=== PATIENT | female | born 1965 | race Caucasian/White ===

== ENCOUNTER → 2016-12-01 | Outpatient (CLI) | payer MEDICAID, BC ==
[2016-12-01 08:40] LABS: ALT 45 U/L (9-52); AST 44 U/L (14-36); Alkaline Phosphatase 78 U/L (38-126); Anion Gap 12 mmol/L; Blood Urea Nitrogen 20 mg/dL (7-17); Calcium 8.9 mg/dL (8.4-10.2); Carbon Dioxide 25 mmol/L (22-30); Chloride 104 mmol/L (98-107); Cholesterol 181 mg/dL (<200); Glucose 108 mg/dL (74-99); HDL Cholesterol 54 mg/dL (40-60); Non-African American GFR(MDRD) >60 (>60 ml/min/1.73 sqM); Potassium 3.5 mmol/L (3.5-5.1); Sodium 141 mmol/L (137-145); Total Bilirubin 0.5 mg/dL (0.2-1.3); Total Protein 6.8 g/dL (6.3-8.2); Triglycerides 193 mg/dL (<150)
[2016-12-01 08:46] LABS: Basophils # (A) 0.1 k/uL (0-0.2); Basophils % (A) 1 %; CH 31.2; CHCM 34.4; Eosinophils # (A) 0.2 k/uL (0-0.7); Eosinophils % (A) 3 %; HCT 39.2 % (34.0-46.0); HGB 13.6 gm/dL (11.4-16.0); Luc # (Auto) 0.27; Luc % (Auto) 3; Lymphocytes # (A) 3.2 k/uL (1.0-4.8); Lymphocytes % (A) 40 %; MCH 31.6 pg (25.0-35.0); MCHC 34.6 g/dL (31.0-37.0); MCV 91.4 fL (80.0-100.0); Mean Platelet Volume 6.9; Monocytes # (A) 0.6 k/uL (0-1.0); Monocytes % (A) 7 %; Neutrophils # (A) 3.6 k/uL (1.3-7.7); Neutrophils % (A) 46 %; RBC 4.29 m/uL (3.80-5.40); RDW 12.7 % (11.5-15.5); WBC (Perox) 8.06
== END | disposition home or self-care (01) ==
LOC: LABWHC1 07:03
PROVIDERS: ATTEND Nurse Practitioner
DX: E78.5 Hyperlipidemia, unspecified (principal); I10 Essential (primary) hypertension; G89.29 Other chronic pain; F31.32 Bipolar disorder, current episode depressed, moderate
CPT/HCPCS: 36415; 80053; 80061; 80183; 84439; 84443; 85025

== ENCOUNTER → 2017-10-10 | Outpatient (CLI) | payer MEDICAID, BC | END | disposition home or self-care (01) | LOC: LABWHC1 07:17 | PROVIDERS: ATTEND Nurse Practitioner | DX: F31.32 Bipolar disorder, current episode depressed, moderate (principal) | CPT/HCPCS: 36415; 80183 ==

== ENCOUNTER → 2018-02-15 | Outpatient (CLI) | payer MEDICAID, BC ==
--- NOTE | 2018-02-15 15:03 | BD ---
EXAMINATION TYPE: Axial Bone Density DATE OF EXAM: 02/15/2018 COMPARISON: NONE CLINICAL HISTORY: Z 13.820, post menopausal female Height: 62 Weight: 248.5 FRAX RISK QUESTIONS: Alcohol (3 or more units per day): no Family History (Parent hip fracture): no Glucocorticoids (More than 3mos): no (Ex: prednisone, prednisolone, methylprednisolone, dexamethasone, and hydrocortisone). History of Fracture in Adulthood: yes Secondary Osteoporosis: 1. Type 1 Diabetes: no 2. Hyperthyroidism: no 3. Menopause before 45: 4. Malnutrition: no 5. Chronic liver disease: no Rheumatoid Arthritis: no Current Tobacco Use: no RISK FACTORS HISTORY OF: Spine Fracture: c-spine When: 1998 Surgery to Spine/Hip(right/left)/Wrist (right/left): lumbar spine When: 2002 Family History of Osteoporosis: no Active: no Diet low in dairy products/other sources of calcium: yes Postmenopausal woman: hysterectomy 2004 Take estrogen and/or progesterone medications: yes How long: since 2004 Lost more than 2 inches in height since high school: no MEDICATIONS: blood pressure, cholesterol meds, protonix, cymbalta, premarin Thyroid Medications: levothyroxine How Lon months Additional History: EXAM MEASUREMENTS: Bone mineral densitometry was performed using the [employer] System. Bone mineral density about the R hip (g/cm2): 0.967 Bone mineral density about the L hip (g/cm2): 1.019 T Score values are as follows: -----R Neck: -0.5 -----L Neck: -0.1 -----R Total: 1.3 -----L Total: 1.7 Bone mineral density : baseline Bone mineral density about the L Wrist (g/cm2): 0.735 T Score values are as follows: -----Dist. R+U: 1.4 -----Prox. R+U: 0.8 -----Radius total: 1.0 Bone mineral density : baseline IMPRESSION: Normal bone density NOTE: T-SCORE=SD OF THE YOUNG ADULT MEAN.
--- NOTE | 2018-02-18 11:06 | MM ---
Reason for exam: screening (asymptomatic). Last mammogram was performed 1 year and 10 months ago. History: Patient is postmenopausal. Taking estrogen for 5 years beginning at age 47. Physical Findings: A clinical breast exam by your physician is recommended on an annual basis and results should be correlated with mammographic findings. MG 3D Screening Mammo W/Cad Bilateral CC and MLO view(s) were taken. Prior study comparison: April 20, 2016, bilateral MG 3d screening mammo w/cad. August 28, 2013, mammogram, performed at [facility]. There are scattered fibroglandular densities. No suspicious abnormality. No significant changes when compared with prior studies. ASSESSMENT: Negative, BI-RAD 1 RECOMMENDATION: Routine screening mammogram of both breasts in 1 year.
== END | disposition home or self-care (01) ==
LOC: RADMAMWWP 12:01
PROVIDERS: ATTEND Obstetrics & Gynecology
DX: Z12.31 Encounter for screening mammogram for malignant neoplasm of breast (principal); Z13.820 Encounter for screening for osteoporosis
CPT/HCPCS: 77063; 77067; 77080

== ENCOUNTER → 2018-04-17 | Outpatient (CLI) | payer MEDICAID, BC ==
--- NOTE | 2018-04-24 12:08 | ECHOF ---
Referral Reason:R94.31 Abnormal EKG MEASUREMENTS -------- HEIGHT: 157.5 cm WEIGHT: 111.1 kg BP: RVIDd: 3.6 cm (< 3.3) IVSd: 1.6 cm (0.6 - 1.1) LVIDd: 4.2 cm (3.9 - 5.3) LVPWd: 1.5 cm (0.6 - 1.1) IVSs: 1.9 cm LVIDs: 2.8 cm LVPWs: 1.9 cm LAESV Index (A-L): 22.95 ml/m Ao Diam: 3.0 cm (2.0 - 3.7) AV Cusp: 1.8 cm (1.5 - 2.6) LA Diam: 3.4 cm (2.7 - 3.8) MV E Walker: 0.91 m/s MV DecT: 240 ms MV A Walker: 1.00 m/s MV E/A Ratio: 0.91 RAP: 5.00 mmHg RVSP: 34.31 mmHg FINDINGS -------- Sinus rhythm. This was a technically adequate study. The left ventricular size is normal. There is moderate concentric left ventricular hypertrophy. O verall left ventricular systolic function is normal with, an EF between 55 - 60 %. The right ventricle is mildly enlarged. Normal LA size by volume 22+/-6 ml/m2. The right atrium is normal in size. Aortic valve is trileaflet and is mildly thickened. Trace amount of aortic regurgitation. There is no evidence of aortic stenosis. The mitral valve leaflets are mildly thickened. There is trace to mild mitral regurgitation. Trace tricuspid regurgitation present. There is borderline pulmonary hypertension. The right vent ricular systolic pressure, as measured by Doppler, is 34.31mmHg. Trace/mild (physiologic) pulmonic regurgitation. The aortic root size is normal. Normal inferior vena cava with normal inspiratory collapse consistent with estimated right atrial pre ssure of 5 mmHg. There is no pericardial effusion. CONCLUSIONS -------- 1. Sinus rhythm. 2. This was a technically adequate study. 3. The left ventricular size is normal. 4. There is moderate concentric left ventricular hypertrophy. 5. Overall left ventricular systolic function is normal with, an EF between 55 - 60 %. 6. The right ventricle is mildly enlarged. 7. Normal LA size by volume 22+/-6 ml/m2. 8. Aortic valve is trileaflet and is mildly thickened. 9. Trace amount of aortic regurgitation. 10. The mitral valve leaflets are mildly thickened. 11. There is trace to mild mitral regurgitation. 12. Trace tricuspid regurgitation present. 13. There is borderline pulmonary hypertension. 14. The right ventricular systolic pressure, as measured by Doppler, is 34.31mmHg. 15. Trace/mild (physiologic) pulmonic regurgitation. 16. The aortic root size is normal. 17. There is no pericardial effusion. GIVER: Silas Gray RDCS
== END | disposition home or self-care (01) ==
LOC: RADECHMAIN 15:40
PROVIDERS: ATTEND Family Medicine
DX: I08.0 Rheumatic disorders of both mitral and aortic valves (principal); I27.20 Pulmonary hypertension, unspecified
CPT/HCPCS: 93306

== ENCOUNTER 2018-04-22 11:45 | Day surgery (SDC) | payer MEDICAID, BC ==
[2018-04-16 11:56] VITALS: BMI 44.8
[~2018-04-22 11:45] MED LIST: DEXAMETHASONE SOD PHOSPHATE 10 MG/ML 1 ML VIAL IV ONE; HYDROmorphone 0.5 MG/0.5 ML SYRINGE IVP PRN; LACTATED RINGERS 1,000 ML IV SCH; LIDOCAINE 1% 20 ML VIAL (10MG/ML) FOR IV START INTRADERMA PRN; MIDAZOLAM 2 MG/2 ML VIAL IV PRN; ONDANSETRON 4 MG/2 ML VIAL IVP ONE; Pre Op ABX Message 1 EACH MISC MISCELLANE ONE; SCOPOLAMINE 1.5MG/72HR PATCH TRANSDERM ONE
[2018-04-22 12:43] VITALS: TEMP 96.4
[2018-04-22] MEDS ORDERED: LIDOCAINE 1% INJ 10MG/ML (20 ML MDV) ONE (12:57)
[2018-04-22] MEDS ORDERED: PROPOFOL 10 MG/ML 20 ML VIAL IV ONE (12:57)
[2018-04-22] MEDS ORDERED: MIDAZOLAM 2 MG/2 ML VIAL ONE (12:57)
[2018-04-22] MEDS ORDERED: fentaNYL (PF) 50 MCG/ML 2 ML AMP ONE (12:57)
[2018-04-22] MEDS ORDERED: LIDOCAINE 2% INJ 20 MG/ML SQ ONE (13:01)
[2018-04-22] MEDS ORDERED: ROPIVACAINE 5 MG/ML 30 ML VIAL MISCELLANE ONE (13:01)
[2018-04-22 13:42] VITALS: BP 121/78; PULSE 78; RESP 16
--- NOTE | 2018-04-22 22:11 | OP ---
OPERATIVE REPORT PREOPERATIVE DIAGNOSIS: Finger POSTOP DIAGNOSIS: Finger . PROCEDURE PERFORMED: Excision of mass left middle finger. GROSS PATHOLOGY: 1 cm mass on the dorsal aspect of the mid lateral line of the radial aspect of the left middle finger. It was consistent with a ganglion cyst, although there was some overlying skin changes which were a little suspicious for wart formation. The mass and the skin lesion were sent together. PROCEDURE: This 53-year-old woman was taken operative suite, given IV sedation and her left middle finger was anesthetized with a digital block with combination of Xylocaine and Marcaine both without epinephrine. The hand was prepped and draped in usual manner. The finger was exsanguinated with a Stanton drain was used as a proximal tourniquet. Elliptical incision was made around the mass. The mass was sent with overlying abnormal skin to the lab for analysis. It was approximately 1 cm in diameter. The mass was primarily dorsal to the mid lateral line and the digital nerve appeared to have remained out of harm's way. The tourniquet was released. Hemostasis was satisfactory. The skin was closed with 5- 0 nylon suture. Soft bulky dressing was applied. Patient taken to the recovery room in satisfactory condition. MMODL / IJN: [id number] /
== END 2018-04-22 13:55 | disposition home or self-care (01) ==
LOC: OR 11:45
PROVIDERS: ATTEND Orthopaedic Surgery Hand Surgery
DX: D23.62 Other benign neoplasm of skin of left upper limb, including shoulder (principal); I10 Essential (primary) hypertension; Z87.891 Personal history of nicotine dependence; E78.5 Hyperlipidemia, unspecified; J45.909 Unspecified asthma, uncomplicated; G47.33 Obstructive sleep apnea (adult) (pediatric); Z99.89 Dependence on other enabling machines and devices; E07.9 Disorder of thyroid, unspecified; M19.90 Unspecified osteoarthritis, unspecified site; K21.9 Gastro-esophageal reflux disease without esophagitis; Z79.890 Hormone replacement therapy; Z79.891 Long term (current) use of opiate analgesic; Z79.51 Long term (current) use of inhaled steroids; Z79.899 Other long term (current) drug therapy
CPT/HCPCS: 88305; 84132; 11421; J2001 ×2; J2250; J1100; J2405; J3010; J2795; J2704

== ENCOUNTER → 2018-12-11 | Day surgery (SDC) | payer MEDICAID, BC ==
[2018-12-06 16:19] VITALS: BMI 44.8
[~2018-12-11] MED LIST changes: +ACETAMINOPHEN TAB 325 MG TAB ONE; +ACETAMINOPHEN TAB 325 MG TAB PO PRN; +ALPRAZolam 0.25 MG TAB PO PRN; +ALPRAZolam 0.5 MG TAB PO PRN; +ASPIRIN 325 MG TAB PO ONE; +ATORVASTATIN 80 MG TAB PO ONE; -DEXAMETHASONE SOD PHOSPHATE 10 MG/ML 1 ML VIAL IV ONE; +HEPARIN SODIUM 1,000 UN/ML (10ML VL) IV ONE; -HYDROmorphone 0.5 MG/0.5 ML SYRINGE IVP PRN; +IOPAMIDOL-370 125ML BTL INJ ONE; -LACTATED RINGERS 1,000 ML IV SCH; -LIDOCAINE 1% 20 ML VIAL (10MG/ML) FOR IV START INTRADERMA PRN; +LIDOCAINE 1% INJ 10MG/ML (20 ML MDV) SQ ONE; +MIDAZOLAM (PF) 2 MG/2 ML VIAL IVP ONE; -MIDAZOLAM 2 MG/2 ML VIAL IV PRN; +NITROGLYCERIN SL TABS 0.4 MG TAB SUBLINGUAL PRN; -ONDANSETRON 4 MG/2 ML VIAL IVP ONE; -Pre Op ABX Message 1 EACH MISC MISCELLANE ONE; +RX INFO: IV CONTRAST WAS GIVEN 1 EACH MISC MISCELLANE PRN; -SCOPOLAMINE 1.5MG/72HR PATCH TRANSDERM ONE; +SODIUM CHLORIDE 0.9% 1,000 ML IV SCH; +SODIUM CHLORIDE 0.9% 1,000 ML in EMPTY BAG 1 BAG IV ONE; +VERAPAMIL SYRINGE (5 MG/10 ML) INTRAARTER ONE; +fentaNYL (PF) 50 MCG/ML 2 ML AMP IVP ONE
[2018-12-11 10:05] VITALS: RESP 18; TEMP 97.8
--- NOTE | 2018-12-11 16:45 | LTR ---
DATE OF SERVICE: December 11, [address] Kirkland: Mr. Himanshu Britton underwent today a heart catheterization and that revealed normal coronaries. I want to thank you for allowing us to participate in his care and please do not hesitate to call if you have any questions or concerns. Sincerely, CHAITANYA / CHIN: [id number] /
--- NOTE | 2018-12-11 16:45 | CC ---
CARDIAC CATHETERIZATION REPORT DATE OF SERVICE: 12/11/2018 PERFORMING PHYSICIAN: Raoul Peralta MD, doll repairer. PROCEDURES PERFORMED: 1. Selective right and left coronary angiogram. 2. Left heart catheterization. INDICATION: This is a pleasant 53-year-old female patient with a past medical history significant for obesity, hypertension and dyslipidemia who was experiencing symptoms of chest discomfort. She underwent a stress test that was abnormal. Because of that, heart catheterization was advised. APPROACH: Right radial artery. COMPLICATIONS: None. LEVEL OF SEDATION: Moderate, with sedation length of 18 minutes. PROCEDURE DESCRIPTION: After obtaining informed consent, the patient was brought to the cardiac confectionery laboratory manager. The right radial artery was cannulated using micropuncture technique, and the micropuncture wire passed easily. Then I placed a 6-Tamazight sheath in the right radial artery. I gave the patient 2 mg of verapamil IA and 10,000 units of heparin IV. After that I did selective right and left coronary angiogram using JR4 and JL3.5 catheters. Left heart catheterization was performed using the JR4 catheter. The procedure was completed without any complication. SELECTIVE CORONARY ANGIOGRAM: 1. The RCA is a large-caliber vessel and it is a dominant vessel. It appeared to be angiographically normal. Distally it bifurcates into PDA and PLV branches; both are angiographically normal. 2. The left main is angiographically normal. It bifurcates into circumflex and left anterior descending artery. 3. The left circumflex is a large-caliber vessel. It is a nondominant vessel. The proximal circumflex appeared to be angiographically normal. The mid circumflex is normal as well and gives rise to first and second OM branches. Both appeared to be angiographically normal. The circumflex distally is normal as well. 4. The LAD. The proximal LAD appeared to be normal. It gives rise to a first diagonal branch which seems to be normal. The mid LAD is normal as well and gives rise to a second diagonal branch which seems to be normal and the LAD distally appeared to be normal. HEMODYNAMICS: The left ventricular end-diastolic pressure was about 8 mmHg without significant gradient across the aortic valve. CONCLUSION: 1. Normal coronary angiogram. 2. Normal left ventricular end-diastolic pressure. POST-PROCEDURE MANAGEMENT: 1. Medical treatment. 2. Follow up with the patient. MMODL / IJN: [id number] /
[2018-12-11 17:20] VITALS: BP 108/58; PULSE 70
== END ==
LOC: CATHCVL 09:33
PROVIDERS: ATTEND Internal Medicine Interventional Cardiology
DX: I20.0 Unstable angina (principal); R94.39 Abnormal result of other cardiovascular function study; R06.02 Shortness of breath; R00.2 Palpitations; I10 Essential (primary) hypertension; E78.00 Pure hypercholesterolemia, unspecified; E78.5 Hyperlipidemia, unspecified; Z87.891 Personal history of nicotine dependence; Z82.49 Family history of ischemic heart disease and other diseases of the circulatory system; G47.33 Obstructive sleep apnea (adult) (pediatric); E66.9 Obesity, unspecified; Z68.42 Body mass index [BMI] 45.0-49.9, adult; Z79.890 Hormone replacement therapy; Z79.899 Other long term (current) drug therapy; Z79.51 Long term (current) use of inhaled steroids
CPT/HCPCS: 93458; C1894; J2001; J3010; J1644; Q9967; J2250

== ENCOUNTER → 2019-06-05 | Outpatient (CLI) | payer MEDICAID, BC ==
--- NOTE | 2019-06-05 18:44 | CONS ---
CONSULTATION DATE OF SERVICE: 06/05/2019 This patient is a 54-year-old lady who has been evaluated in [facility] for obstructive sleep apnea-hypopnea syndrome. HISTORY OF PRESENT ILLNESS/SLEEP-WAKE EVALUATION: Patient was diagnosed with obstructive sleep apnea about 25 years ago in another institution, was started on treatment with CPAP, used it for many years, but for the last several years it was not very effective. She continues to wake up from sleep. She stopped using the equipment about one year ago. At present her sleep schedule on working days is from 11 p.m. until 7 a.m. and on weekends she may sleep from 11 p.m. until noon of the next day. No problems with falling asleep. No TV in bedroom. She sleeps on the side and back positions, wakes up from sleep with nocturia. In the morning the patient wakes up tired, falling asleep during the day. [place] Sleepiness Scale is in very high range at 22. Positive history of irritability, depression and anxiety. Positive history of kicking at night. Several episodes of out- of-dream behavior when patient punches her . No history of hypnagogic hallucinations, sleep paralysis or cataplexy. PAST MEDICAL HISTORY: Past medical history is positive for: 1. Episodes of atrial fibrillation in December of 2018. 2. Hypertension. 3. Acid reflux. 4. Hyperlipidemia. 5. Hypothyroidism. PAST SURGICAL HISTORY: 1. Total hysterectomy 7 years ago. 2. Spinal fusion surgery, C5-L1. 3. . MEDICATIONS: 1. Lovaza. 2. Lisinopril. 3. Furosemide. 4. Trileptal. 5. Cymbalta. 6. Protonix. 7. Crestor. 8. [place]. 9. Levothyroxine. 10.Premarin. SOCIAL HISTORY: Positive for smoking for about 15 years about half pack a day; quit about 5 years ago. Alcohol consumption practically none at the present time. FAMILY HISTORY: Hypertension, heart problems, hyperlipidemia, epilepsy, stroke, asthma, sinus headaches, snoring, thyroid problems. REVIEW OF SYSTEMS: Awakenings from sleep. Significant sleepiness during the day. Swelling of the legs. PHYSICAL EXAMINATION: lady without distress. VITAL SIGNS: BP 151/88, HR 79, RR 16, height 5 feet 1 inches, 214 IV 5 8 weight 251.2, body mass index 47.1, temperature 98.1, oxygen saturation at room air 96%. HEENT: PERRLA, EOMI. Evaluation of oropharynx showed tongue protrudes midline. Extremely low position of soft palate. Mallampati IV. NECK: Supple. No JVD. Thyroid is not palpable. Wide neck; 18-3/4 inches in circumference. LUNGS: Clear to percussion and to auscultation. Good air exchange. No wheezing or rhonchi. HEART: S1, S2 regular. No murmurs, gallops or rubs. ABDOMEN: Obese. EXTREMITIES: No clubbing or cyanosis. FRAME BENDER: Awake, alert, and oriented X3. Cranial nerves 2 to 7 intact. There is no fasciculation or atrophy. noted. No focal deficits observed. IMPRESSION: 1. History of obstructive sleep apnea diagnosed in another institution 25 years ago. Snoring, awakenings from sleep with nocturia, significant excessive daytime sleepiness, Montezuma Sleepiness Scale 22, extremely low position of soft palate, wide neck, 18-3/4 inches in circumference; obstructive sleep apnea-hypopnea syndrome. 2. Obesity with body mass index of 42.1. 3. Hypertension. 4. History of atrial fibrillation in december of 2018. 5. Acid reflux. 6. Hyperlipidemia. 7. Hypothyroidism. 8. Status post spinal fusion, C5-L1. 9. Status post total hysterectomy 7 years ago. 10.Status post section. 11.History of kicking; possible periodic limb movement syndrome. 12.Episodes of [id number] behavior; possibly REM-sleep behavioral disorder. 13.Significant excessive daytime sleepiness with Montezuma Sleepiness Scale of 22 and possible jeb-ij-bjlio movements, dictating necessity to include hypersomnia narcolepsy in differential diagnosis. PLAN: 1. Polysomnography for evaluation of patient's breathing during sleep. 2. CPAP/BiPAP titration if sleep study confirms obstructive sleep apnea-hypopnea syndrome. 3. Preferable position during sleep on the side. 4. No driving if patient feels any sleepiness. 5. I will see patient for follow up visit to explain results of testing and following plan. Thank you very much for referring this patient for consultation. Sincerely, Danielito Flores MD, PhD, FAASM Diplomat of [employer] Spanish Professor of [facility] [place] MMODL / IJN: [id number] /
== END | disposition home or self-care (01) ==
LOC: SLEEP 13:47
PROVIDERS: ATTEND Internal Medicine
DX: G47.33 Obstructive sleep apnea (adult) (pediatric) (principal); E66.9 Obesity, unspecified; Z68.41 Body mass index [BMI] 40.0-44.9, adult; I10 Essential (primary) hypertension; K21.9 Gastro-esophageal reflux disease without esophagitis; E78.5 Hyperlipidemia, unspecified; E03.9 Hypothyroidism, unspecified; R35.1 Nocturia; Z87.891 Personal history of nicotine dependence; Z86.79 Personal history of other diseases of the circulatory system; Z90.710 Acquired absence of both cervix and uterus; Z86.59 Personal history of other mental and behavioral disorders; Z98.1 Arthrodesis status; Z98.890 Other specified postprocedural states; Z79.891 Long term (current) use of opiate analgesic; Z79.899 Other long term (current) drug therapy
CPT/HCPCS: 99211

== ENCOUNTER → 2019-06-11 | Outpatient (CLI) | payer MEDICAID, BC ==
[2019-06-11 16:37] LABS: HGB 13.4 gm/dL (11.4-16.0); MCHC 33.4 g/dL (31.0-37.0); Platelet Count 424 k/uL (150-450); RBC 4.45 m/uL (3.80-5.40); RDW 12.1 % (11.5-15.5); WBC 10.2 k/uL (3.8-10.6)
[2019-06-11 21:19] LABS: African American GFR (CKD) 118.9 (60.0-200.0); Anion Gap 14.3 mmol/L (4.00-12.00); BUN/Creat Ratio 31.67 Ratio (12.00-20.00); Calcium 9.6 mg/dL (8.7-10.3); Carbon Dioxide 24.7 mmol/L (21.6-31.8); Magnesium 1.8 mg/dL (1.5-2.4); Potassium 3.7 mmol/L (3.5-5.5)
== END ==
LOC: LABWHC1 11:46
PROVIDERS: ATTEND Nurse Practitioner Adult Health
DX: I12.9 Hypertensive chronic kidney disease with stage 1 through stage 4 chronic kidney disease, or unspecified chronic kidney disease (principal); N18.9 Chronic kidney disease, unspecified
CPT/HCPCS: 36415; 80048; 83735; 85027

== ENCOUNTER → 2019-06-11 | Outpatient (CLI) | payer MEDICAID, BC ==
--- NOTE | 2019-06-13 11:15 | MM ---
Reason for exam: screening (asymptomatic). Last mammogram was performed 1 year and 4 months ago. History: Patient is postmenopausal. Taking estrogen for 5 years beginning at age 47. Physical Findings: A clinical breast exam by your physician is recommended on an annual basis and results should be correlated with mammographic findings. MG 3D Screening Mammo W/Cad Bilateral CC and MLO view(s) were taken. Prior study comparison: February 15, 2018, bilateral MG 3d screening mammo w/cad. April 20, 2016, bilateral MG 3d screening mammo w/cad. There are scattered fibroglandular densities. There is no discrete abnormality. No significant changes when compared with prior studies. ASSESSMENT: Negative, BI-RAD 1 RECOMMENDATION: Routine screening mammogram of both breasts in 1 year.
== END | disposition home or self-care (01) ==
LOC: RADMAMWWP 10:56
PROVIDERS: ATTEND Obstetrics & Gynecology
DX: Z12.31 Encounter for screening mammogram for malignant neoplasm of breast (principal); I10 Essential (primary) hypertension
CPT/HCPCS: 77063; 77067

== ENCOUNTER → 2019-09-25 | Outpatient (CLI) | payer MEDICAID, BC ==
--- NOTE | 2019-09-25 15:06 | PN ---
PROGRESS NOTE DATE OF SERVICE: 09/25/2019 A 54-year-old lady who has been followed in the Sleep Center for treatment of obstructive sleep apnea-hypopnea syndrome. Recently patient had a polysomnogram which showed moderate obstructive sleep apnea. Then patient had CPAP titration and subsequently received CPAP unit. Today is her first visit why she was started on treatment with CPAP. I discussed results of sleep studies with patient in detail. She is able to use her CPAP equipment every night, feel better with that, sleep better and feel better during the day, sometimes has problems related to adjustments of humidifier. She sleep some days quite long, amount of hours up to 14 hours several days according to patient and today [place] Sleepiness Scale is 15 with is still above normal range. I checked the patient CPAP unit, range of the pressure 5-14, average pressure is 13.8. Usage is 30/30 nights for more than 4 hours with average usage 8.5 hours per night. Leak is 8 L/minute, which is normal. Apnea-hypopnea index only 1.5, which is perfect. MEDICATIONS: Lovaza, lisinopril, furosemide, Trileptal, Cymbalta, Protonix, Crestor, [place], levothyroxine, Premarin. PHYSICAL EXAM: Patient in no distress, BP 164/83, HR 85, RR 16, weight 258.2, temperature 97.8, oxygen saturation at room air 94%. OROPHARYNX: Extremely low position of soft palate, Mallampati 4. ABDOMEN: Obese. NECK: Supple, no JVD. Thyroid is not palpable. LUNGS: Clear to percussion and to auscultation. Good air exchange. No wheezing or rhonchi. HEART: S1, S2 regular. No murmurs, gallops, or rubs. EXTREMITIES: No clubbing or cyanosis. PRODUCTION PATTERN MAKER: Awake, alert, and oriented X3. Cranial nerves 2 to 7 intact. There is no fasciculation or atrophy. noted. No focal deficits observed. IMPRESSION: 1. Moderate obstructive sleep apnea-hypopnea syndrome with extremely severe oxygen desaturation in REM sleep, respiration on full control with CPAP. Patient demonstrated great compliance with treatment benefitting from treatment. 2. Patient continued to have daytime sleepiness. Spe[place]fish Sleepiness Scale today is 15. Some nights asleep very long hours. Differential diagnosis would include additional diagnosis of idiopathic hypersomnia or narcolepsy. 3. Obesity. 4. Hypertension. 5. History of atrial fibrillation. 6. Hyperlipidemia. 7. Acid reflux. 8. Hypothyroidism. 9. Status post spinal fusion C5-L1. 10.Status post total hysterectomy. 11.Status post . 12.History of episodes of out of dream movements, possibly REM sleep behavioral disorder, not recently. PLAN: 1. Patient will continue to use CPAP equipment every night for the whole night. 2. Position of the CPAP unit should be lower than position of the head. 3. I will teach patient how to adjust humidity in the machine and temperature in the tube. 4. Losing weight. 5. Precautions related to driving. No driving if feeling sleepiness. 6. Multiple sleep latency test for objective evaluation of patient's symptoms of excessive daytime sleepiness. The test should be done after the night on the effective CPAP therapy. Thank you very much for allowing me to participate in the management of your patient. Sincerely, Danielito Flores MD, PhD, FAASM Diplomat of [employer] Milk Bottling Machine Operator of [facility] [place] MMODL / IJN: [id number] /
== END ==
LOC: SLEEP 13:29
PROVIDERS: ATTEND Internal Medicine
DX: G47.33 Obstructive sleep apnea (adult) (pediatric) (principal); E66.9 Obesity, unspecified; I10 Essential (primary) hypertension; E78.5 Hyperlipidemia, unspecified; K21.9 Gastro-esophageal reflux disease without esophagitis; E03.9 Hypothyroidism, unspecified; Z86.79 Personal history of other diseases of the circulatory system; Z98.1 Arthrodesis status; Z98.890 Other specified postprocedural states; Z90.710 Acquired absence of both cervix and uterus; Z79.891 Long term (current) use of opiate analgesic; Z79.899 Other long term (current) drug therapy

== ENCOUNTER → 2020-12-28 | Outpatient (CLI) | payer BC ==
--- NOTE | 2020-12-28 12:12 | MR ---
EXAMINATION TYPE: MR knee LT wo con DATE OF EXAM: 12/28/2020 COMPARISON: Outside left knee x-ray December 07, 2020 HISTORY: Left knee pain and swelling for 3 months. TECHNIQUE: Multiplanar, multisequence imaging of the left knee is performed without IV contrast. FINDINGS: MEDIAL MENISCUS: Posterior shoulder triangular increased signal with some fraying along the posterior margin. Anterior horn is intact. LATERAL MENISCUS: Anterior horn is truncated with abnormal signal extending to articular surface and towards the central body.Adjacent parameniscal cyst formation coronal image 15. CRUCIATE LIGAMENTS: The posterior cruciate ligament is intact and unremarkable. Anterior cruciate lig ament shows increased signal and fanning of fibers. COLLATERAL LIGAMENTS: The medial collateral ligament and lateral collateral ligament complex are inta ct and unremarkable. EXTENSOR MECHANISM: Visualized quadriceps and patellar tendons are intact. EFFUSION: Moderate size suprapatellar joint effusion. POPLITEAL CYST: Partial visualization of fluid collection popliteal fossa extending inferiorly consi stent with large leaking popliteal cyst. TRICOMPARTMENT SPACES: Mild tricompartment joint space loss. No significant spurring. CARTILAGE: Tricompartmental articular cartilage maintained. BONE MARROW SIGNAL: No focal abnormal marrow signal is appreciated. OTHER: No additional significant abnormality is appreciated. IMPRESSION: 1. Complex tear anterior horn of lateral meniscus extending into the central body. 2. Partial tearing of the anterior cruciate ligament near anterior tibial articular surface. 3. Large leaking popliteal cyst. 4. Moderate-sized suprapatellar joint effusion. 5. Mild tricompartment degenerative changes. 6. At least an intrasubstance tear posterior horn medial meniscus.
== END | disposition home or self-care (01) ==
LOC: RADMRIMAIN 11:07
PROVIDERS: ATTEND Orthopaedic Surgery
DX: M23.342 Other meniscus derangements, anterior horn of lateral meniscus, left knee (principal); M17.12 Unilateral primary osteoarthritis, left knee; M23.322 Other meniscus derangements, posterior horn of medial meniscus, left knee; M71.22 Synovial cyst of popliteal space [Baker], left knee

== ENCOUNTER → 2020-12-31 | Outpatient (CLI) | payer BC ==
--- NOTE | 2020-12-31 16:14 | US ---
EXAMINATION TYPE: US venous doppler duplex LE LT DATE OF EXAM: 12/31/2020 3:54 PM COMPARISON: NONE CLINICAL HISTORY: M79.662 Pain L leg, R22.42 Swelling L leg. SIDE PERFORMED: Left TECHNIQUE: The lower extremity deep venous system is examined utilizing real time linear array sonog kishor with graded compression, doppler sonography and color-flow sonography. VESSELS IMAGED: Common Femoral Vein Deep Femoral Vein Greater Saphenous Vein * Femoral Vein Popliteal Vein Small Saphenous Vein * Proximal Calf Veins (* superficial vessels) Left Leg: Negative for DVT IMPRESSION: No evidence of DVT.
== END | disposition home or self-care (01) ==
LOC: RADUSWWP 15:32
PROVIDERS: ATTEND Orthopaedic Surgery
DX: M79.662 Pain in left lower leg (principal); R22.42 Localized swelling, mass and lump, left lower limb

== ENCOUNTER → 2021-01-12 | Outpatient (CLI) | payer BC ==
[2021-01-12 15:00] LABS: Basophils # (A) 0.1 k/uL (0-0.2); Basophils % (A) 1 %; Eosinophils # (A) 0.2 k/uL (0-0.7); Eosinophils % (A) 3 %; HCT 41.7 % (34.0-46.0); HGB 14.3 gm/dL (11.4-16.0); Lymphocytes # (A) 2.4 k/uL (1.0-4.8); Lymphocytes % (A) 30 %; MCH 31.8 pg (25.0-35.0); MCHC 34.2 g/dL (31.0-37.0); MCV 92.9 fL (80.0-100.0); Monocytes # (A) 0.7 k/uL (0-1.0); Monocytes % (A) 8 %; Neutrophils # (A) 4.5 k/uL (1.3-7.7); Neutrophils % (A) 56 %; Platelet Count 341 k/uL (150-450); RBC 4.49 m/uL (3.80-5.40); RDW 12.1 % (11.5-15.5)
[2021-01-12 15:10] LABS: Potassium 3.9 mmol/L (3.5-5.1)
== END | disposition home or self-care (01) ==
LOC: LABPAT 13:16
PROVIDERS: ATTEND Orthopaedic Surgery
DX: Z01.812 Encounter for preprocedural laboratory examination (principal); M23.92 Unspecified internal derangement of left knee
CPT/HCPCS: 36415; 80051; 85025; 93005

== ENCOUNTER 2021-01-20 14:01 | Day surgery (SDC) | payer BC ==
[2021-01-18 09:52] VITALS: BMI 45.7
--- NOTE | 2021-01-19 21:59 | HP ---
HISTORY AND PHYSICAL REASON FOR ADMISSION: Surgery scheduled for 01/20/2021. HISTORY OF PRESENT ILLNESS: Himanshu Britton is a 56-year-old gentleman seen with progressive left knee pain. Options for treatment were discussed. He elected to proceed with arthroscopy. Consent was obtained. PAST MEDICAL HISTORY: Hypertension, hypothyroidism, asthma, hyperlipidemia. PAST SURGICAL HISTORY: Carpal tunnel release, hysterectomy, section. DAILY MEDICATIONS: Levothyroxine, lisinopril, rosuvastatin. ALLERGIES: None. SOCIAL HISTORY: Patient denies tobacco use. PHYSICAL EVALUATION OF THE LEFT KNEE: Range of motion -2/3-120. Mild effusion. Tenderness medial lateral joint line. Positive medial Kareem's. Positive lateral Kareem's. Ligaments stable. Hip rotation without pain. Distal neurovascular exam is intact. RADIOGRAPHS: Radiographs of the left knee revealed mild osteoarthritis left knee. MRI revealed lateral meniscal tear, partial ACL tear, effusion of a large leaking popliteal cyst. IMPRESSION: 1. Internal derangement of left knee with lateral meniscal tear and partial ACL tear. 2. Hypertension. 3. Hyperlipidemia. 4. Hypothyroidism. PLAN: Left knee arthroscopy with partial meniscectomy and debridement. Surgery 01/20/2021. MMODL / IJN: [id number] /
[~2021-01-20 14:01] MED LIST changes: -ACETAMINOPHEN TAB 325 MG TAB ONE; -ACETAMINOPHEN TAB 325 MG TAB PO PRN; -ALPRAZolam 0.25 MG TAB PO PRN; -ALPRAZolam 0.5 MG TAB PO PRN; -ASPIRIN 325 MG TAB PO ONE; -ATORVASTATIN 80 MG TAB PO ONE; +DEXAMETHASONE SOD PHOSPHATE 4 MG/ML 1 ML VIAL IV ONE; -HEPARIN SODIUM 1,000 UN/ML (10ML VL) IV ONE; -IOPAMIDOL-370 125ML BTL INJ ONE; +LACTATED RINGERS 1,000 ML IV SCH; -LIDOCAINE 1% INJ 10MG/ML (20 ML MDV) SQ ONE; -MIDAZOLAM (PF) 2 MG/2 ML VIAL IVP ONE; -NITROGLYCERIN SL TABS 0.4 MG TAB SUBLINGUAL PRN; +ONDANSETRON 4 MG/2 ML VIAL IVP ONE; -RX INFO: IV CONTRAST WAS GIVEN 1 EACH MISC MISCELLANE PRN; -SODIUM CHLORIDE 0.9% 1,000 ML IV SCH; -SODIUM CHLORIDE 0.9% 1,000 ML in EMPTY BAG 1 BAG IV ONE; -VERAPAMIL SYRINGE (5 MG/10 ML) INTRAARTER ONE; -fentaNYL (PF) 50 MCG/ML 2 ML AMP IVP ONE
[2021-01-20] MEDS ORDERED: MIDAZOLAM 2 MG/2 ML VIAL ONE (14:19)
[2021-01-20] MEDS ORDERED: SUCCINYLCHOLINE CHLORIDE 100 MG/5 ML SYR IV ONE (14:19)
[2021-01-20] MEDS ORDERED: PHENYLEPHRINE-0.9% NACL SYG 1,000 MCG/10 ML SYRINGE ONE (14:19)
[2021-01-20] MEDS ORDERED: fentaNYL (PF) 50 MCG/ML 2 ML AMP ONE (14:19)
[2021-01-20] MEDS ORDERED: LIDOCAINE 1% INJ 10MG/ML (20 ML MDV) ONE (14:19)
[2021-01-20] MEDS ORDERED: PROPOFOL 10 MG/ML 20 ML VIAL IV ONE (14:19)
[2021-01-20] MEDS ORDERED: LIDOCAINE 1% (10MG/ML) FOR IV START INTRADERMA ONE (14:45)
[2021-01-20] MEDS ORDERED: BUPIVACAINE (PF) 0.25% 30 ML VIAL INTRAARTIC ONE ×2 (14:52→15:18)
--- NOTE | 2021-01-20 15:33 | P.OP ---
Date of Procedure: 01/20/21 Preoperative Diagnosis: Internal derangement left knee Postoperative Diagnosis: 1. Complex tear lateral meniscus left knee 2. Reactive synovitis medial, lateral and suprapatellar compartments left knee Procedure(s) Performed: 1. Arthroscopic partial lateral meniscectomy left knee 2. Arthroscopic partial synovectomy medial, lateral and suprapatellar compartments left knee Anesthesia: DILIPA, local Surgeon: Ralph Smiley Estimated Blood Loss (ml): 7 Pathology: none sent Condition: stable Disposition: PACU Indications for Procedure: 56-year-old patient seen with progressive left knee pain. We discussed treatment options. She elected to proceed with arthroscopy. Operative Findings: see description of procedure Description of Procedure: Patient was taken to the operative suite. Patient underwent a general anesth etic by the department of anesthesia. Patient was given preoperative antibiotics. The left lower extremity was placed in a well-padded arthroscopic leg graves. The left leg was prepped and draped in the normal sterile orthopedic fashion. A lateral parapatellar and suprapatellar incision was made. Trochars were inserted. Arthroscopy was initiated. Suprapatellar pouch revealed diffuse thick reactive synovitis. The patellofemoral joint appeared to articulate congruently. There was grade 1 chondromalacia of the patella with no significant osteochondral tears present.. The scope was guided into the medial gutter. No loose bodies or plica were identified. The scope was then guided into the medial compartment. A medial parapatellar incision was made. Trocar inserted followed by probe. The medial meniscus was probed and found to be stable. There were grade 1/2 chondromalacia changes of the medial compartment with no substantial osteochondral tears present. There was some thick reactive synovitis anteriorly. I introduced a motorized shaver and performed a partial synovectomy decompressing the thick reactive synovitis. The shaver was removed. There was good decompression of the synovitis. Scope and probe were then guided into the intercondylar notch. Cruciates were identified, probed and found to be stable. The scope and probe were then guided into lateral compart ment. There was a complex tear of the lateral meniscus involving the entire anterior horn as well as entire mid body extending slightly into the posterior horn. There were grade 1 chondromalacia changes of the lateral femoral condyle. There were no osteochondral tears present. There was some reactive synovitis anteriorly. I performed a partial lateral meniscectomy getting down to stable meniscal tissue. I performed a partial synovectomy decompressing the reactive synovitis. The residual meniscus was found to be stable. There was good decompression synovitis. The scope was in guided back into the suprapatellar compartment. I introduced a motorized shaver into the super patellar compartment. I debrided some piecemeal fragments of meniscus I encountered. I performed a partial synovectomy decompressing the reactive synovitis. The shaver was removed. There was good decompression of the synovitis. I took one more look around the entire knee, no residual debris. Instruments were now removed from the joint. The joint was infiltrated with .25% Marcaine. Steri- Strips were applied to the portal sites. Sterile dressings were applied. The patient was placed into a ROSALBA hose. No tourniquet was utilized. The patient was awakened, transferred to a bed and taken to recovery stable satisfactory condition.
[2021-01-20 15:39] VITALS: TEMP 97
[2021-01-20] MEDS ORDERED: ALBUTEROL NEBULIZED 2.5 MG/3 ML INHALATION ONE (15:46)
[2021-01-20] MEDS: HYDROmorphone 0.5 MG/0.5 ML SYRINGE IVP PRN ×4 (15:54→16:23)
[2021-01-20 16:48] VITALS: RESP 18
[2021-01-20 17:00] VITALS: BP 126/71; PULSE 78
== END 2021-01-20 17:26 | disposition home or self-care (01) ==
LOC: OR 14:01
PROVIDERS: ATTEND Orthopaedic Surgery
DX: M23.201 Derangement of unspecified lateral meniscus due to old tear or injury, left knee (principal); M65.862 Other synovitis and tenosynovitis, left lower leg; I10 Essential (primary) hypertension; E03.9 Hypothyroidism, unspecified; J45.909 Unspecified asthma, uncomplicated; K21.9 Gastro-esophageal reflux disease without esophagitis; E78.5 Hyperlipidemia, unspecified; G47.33 Obstructive sleep apnea (adult) (pediatric); Z90.710 Acquired absence of both cervix and uterus; Z98.890 Other specified postprocedural states; Z98.891 History of uterine scar from previous surgery; Z79.890 Hormone replacement therapy; Z79.899 Other long term (current) drug therapy
CPT/HCPCS: 29881; 29876; J2250; J1100; J0690; J2405; J2001; J3010; J2370; J0330; J2704; J1170

== ENCOUNTER → 2021-03-29 | Outpatient (CLI) | payer BC | END | disposition home or self-care (01) | LOC: RADMAMWWP 11:21 | PROVIDERS: ATTEND Obstetrics & Gynecology | DX: Z53.9 Procedure and treatment not carried out, unspecified reason (principal) ==

== ENCOUNTER → 2021-04-01 | Outpatient (CLI) | payer BC ==
--- NOTE | 2021-04-01 10:25 | MM ---
Reason for exam: clinical finding. Last mammogram was performed 1 year and 10 months ago. History: Patient is postmenopausal. Took estrogen for 9 years beginning at age 47. Indicated problem(s): lump or thickening in the right breast. Physical Findings: Nurse Summary: 1cm nodule in the right breast at 1 o'clock (nurse mj). MG 3D Diag Mammo W/Cad [place] Bilateral CC and MLO view(s) were taken. Prior study comparison: June 11, 2019, bilateral MG 3d screening mammo w/cad. February 15, 2018, bilateral MG 3d screening mammo w/cad. April 20, 2016, bilateral MG 3d screening mammo w/cad. There are scattered fibroglandular densities. There are benign appearing round calcifications bilaterally. There is no discrete abnormality. These results were verbally communicated with the patient and result sheet given to the patient on 04/01/21. ASSESSMENT: Incomplete: need additional imaging evaluation, BI-RAD 0 RECOMMENDATION: Ultrasound of the right breast. (palpable by nurse)
--- NOTE | 2021-04-01 10:27 | USB ---
Reason for exam: additional evaluation requested from abnormal screening. History: Patient is postmenopausal. Took estrogen for 9 years beginning at age 47. US Breast Limited RT Right limited breast ultrasound including focal area of concern, retroareolar and axilla demonstrates a 2.2 x 1.2 x 1.5cm oval, hyperechoic lesion at 2 o'clock BB and a 0.5 x 0.3 x 0.6cm oval, hyperechoic lesion at 2 o'clock near BB. Lipomas correlate with mammogram. These results were verbally communicated with the patient and result sheet given to the patient on 04/01/21. ASSESSMENT: Benign, BI-RAD 2 RECOMMENDATION: Routine screening mammogram of both breasts in 1 year.
== END | disposition home or self-care (01) ==
LOC: LABWHC1 08:22
PROVIDERS: ATTEND Obstetrics & Gynecology
DX: R92.8 Other abnormal and inconclusive findings on diagnostic imaging of breast (principal); Z78.0 Asymptomatic menopausal state
CPT/HCPCS: 77062; 77066

== ENCOUNTER → 2021-04-23 | Outpatient (CLI) | payer BC ==
--- NOTE | 2021-04-24 08:50 | MR ---
EXAMINATION TYPE: MR knee RT wo con DATE OF EXAM: 04/23/2021 COMPARISON: Outside right knee x-ray March 29, 2021 HISTORY: Right knee pain, S/P fall 3 mos ago. TECHNIQUE: Multiplanar, multisequence imaging of the knee is performed without IV contrast. FINDINGS: MEDIAL MENISCUS: Anterior and posterior horns are intact without tear. LATERAL MENISCUS: Anterior horn has a truncated appearance with increased oblique and horizontal sign al extending through articular surface. CRUCIATE LIGAMENTS: The anterior and posterior cruciate ligaments are intact and unremarkable. COLLATERAL LIGAMENTS: The medial collateral ligament and lateral collateral ligament complex are inta ct and unremarkable. EXTENSOR MECHANISM: Visualized quadriceps and patellar tendons are intact. EFFUSION: No significant suprapatellar joint effusion. POPLITEAL CYST: There is moderate size popliteal/schulz cyst at 6.9 cm long axis sagittal image 7 wit h some septation and deep component noted. TRICOMPARTMENT SPACES: Mild tricompartment joint space loss without significant spurring. CARTILAGE: Tricompartmental articular cartilage is maintained. BONE MARROW SIGNAL: No focal abnormal marrow signal is appreciated. OTHER: No additional significant abnormality is appreciated. IMPRESSION: 1. Full-thickness tearing anterior horn lateral meniscus. 2. Mild tricompartment degenerative changes. 3. Moderate size popliteal cyst.
== END | disposition home or self-care (01) ==
LOC: RADMRIMAIN 12:55
PROVIDERS: ATTEND Orthopaedic Surgery
DX: M23.241 Derangement of anterior horn of lateral meniscus due to old tear or injury, right knee (principal); M17.11 Unilateral primary osteoarthritis, right knee; M71.21 Synovial cyst of popliteal space [Baker], right knee

== ENCOUNTER → 2021-06-07 | Outpatient (CLI) | payer BC ==
[2021-06-07 14:22] LABS: Basophils # (A) 0.1 k/uL (0-0.2); Basophils % (A) 1 %; Eosinophils # (A) 0.2 k/uL (0-0.7); Eosinophils % (A) 2 %; HCT 45.5 % (34.0-46.0); HGB 15.8 gm/dL (11.4-16.0); Lymphocytes # (A) 2.7 k/uL (1.0-4.8); Lymphocytes % (A) 28 %; MCH 31.7 pg (25.0-35.0); MCHC 34.7 g/dL (31.0-37.0); MCV 91.2 fL (80.0-100.0); Mean Platelet Volume 8.4; Monocytes # (A) 0.7 k/uL (0-1.0); Monocytes % (A) 7 %; Neutrophils % (A) 60 %; Platelet Count 391 k/uL (150-450); RBC 4.99 m/uL (3.80-5.40); WBC 9.9 k/uL (3.8-10.6)
[2021-06-07 14:32] LABS: Potassium 3.6 mmol/L (3.5-5.1)
== END | disposition home or self-care (01) ==
LOC: LABPAT 13:05
PROVIDERS: ATTEND Orthopaedic Surgery
DX: Z01.812 Encounter for preprocedural laboratory examination (principal); M23.92 Unspecified internal derangement of left knee
CPT/HCPCS: 36415; 80051; 85025

== ENCOUNTER 2021-06-09 12:21 | Day surgery (SDC) | payer BC ==
[2021-06-07 16:10] VITALS: BMI 45.7
--- NOTE | 2021-06-08 19:26 | HP ---
HISTORY AND PHYSICAL DATE OF SURGERY: 06/09/2021 Himanshu Britton is a 56-year-old patient seen with progressive right knee pain. Treatment options were discussed. The patient elected to proceed with right knee arthroscopy. Consent was obtained. PAST MEDICAL HISTORY: Hypertension, hyperlipidemia, hypothyroidism. PAST SURGICAL HISTORY: Carpal tunnel release, hysterectomy, section. DAILY MEDICATIONS: Furosemide, hydrocodone, levothyroxine, lisinopril, atorvastatin, Tylenol. ALLERGIES: NONE. SOCIAL HISTORY: Patient denies tobacco use. PHYSICAL EVALUATION OF THE RIGHT KNEE: Range of motion zero to 120. Mild effusion. Tenderness, medial joint line. Tenderness, lateral joint line. Positive medial Kareem's. Positive lateral Kareem's. Ligaments stable. Hip rotation without pain. Distal neurovascular exam is intact. IMAGING: Radiographs of the right knee revealed mild osteoarthritis. MRI of right knee revealed lateral meniscal tear and popliteal cyst. IMPRESSION: 1. Internal derangement of right knee with lateral meniscal tear. 2. Hypertension. 3. Hyperlipidemia. 4. Hypothyroidism. PLAN: Right knee arthroscopy with partial meniscectomy and debridement. MMODL / IJN: [id number] /
[~2021-06-09 12:21] MED LIST changes: +HYDROmorphone 0.5 MG/0.5 ML SYRINGE IVP PRN; +LIDOCAINE 1% (10MG/ML) FOR IV START INTRADERMA PRN; +MIDAZOLAM 2 MG/2 ML VIAL IV PRN
[2021-06-09] MEDS ORDERED: LACTATED RINGERS 1,000 ML IV ONE (13:01)
[2021-06-09] MEDS ORDERED: BUPIVACAINE (PF) 0.25% 30 ML VIAL SQ ONE ×2 (14:30→15:07)
[2021-06-09] MEDS ORDERED: CHLOROPROCAINE 3% 30 MG/ML 20 ML VIAL ONE (14:33)
[2021-06-09] MEDS ORDERED: PHENYLEPHRINE-0.9% NACL SYG 1,000 MCG/10 ML SYRINGE ONE (14:33)
[2021-06-09] MEDS ORDERED: LIDOCAINE 1% INJ 10MG/ML (20 ML MDV) ONE (14:33)
[2021-06-09] MEDS ORDERED: MIDAZOLAM 2 MG/2 ML VIAL ONE (14:33)
[2021-06-09] MEDS ORDERED: fentaNYL (PF) 50 MCG/ML 2 ML AMP ONE (14:33)
[2021-06-09 15:22] VITALS: TEMP 97.1
--- NOTE | 2021-06-09 15:24 | P.OP ---
Date of Procedure: 06/09/21 Preoperative Diagnosis: Internal derangement right knee Postoperative Diagnosis: 1. Tear lateral meniscus right knee 2. 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 Reactive synovitis medial, lateral and suprapatellar compartments right knee Procedure(s) Performed: 1. Arthroscopic partial lateral meniscectomy right knee 2. Arthroscopic chondroplasty medial femoral condyle right knee 3. Arthroscopic chondroplasty lateral tibial plateau right knee 4. Arthroscopic partial synovectomy medial, lateral and suprapatellar compartments right knee Anesthesia: DILIPA, local Surgeon: Ralph Smiley Estimated Blood Loss (ml): 7 Pathology: none sent Condition: stable Disposition: PACU Indications for Procedure: 56-year-old patient seen with progressive right knee pain. After treatment options were discussed, she elected to proceed with arthroscopy. Operative Findings: See description of procedure Description of Procedure: Patient was taken to the operative suite. Patient underwent a general anesthetic by the department of anesthesia. Patient was given preoperative antibiotics. The right lower extremity was placed in a well-padded arthroscopic leg graves. The right leg was prepped and draped in the normal sterile orthopedic fashion. A lateral parapatellar and suprapatellar incision was made. Trochars were inserted. Arthroscopy was initiated. Suprapatellar pouch revealed diffuse thick reactive synovitis. The patellofemoral joint appeared to articulate congruently. There was grade 1 chondromalacia of the patella with no osteochondral tears present. The scope was guided into the medial gutter. No loose bodies or plica were identified. The scope was then guided into the medial compartment. A medial parapatellar incision was made. Trocar inserted followed by probe. Medial meniscus was found to be stable. There were grade 1/2 chondromalacia changes the medial femoral condyle with osteochondral flap tears present. There was thick reactive synovitis anteriorly. I performed a chondroplasty of the medial femoral condyle getting down to stable osteochondral tissue. I performed a partial synovectomy decompressing the thick reactive synovitis. Shaver was removed. The residual osteochondral surface was stable. There was good decompression of the synovitis. Scope and probe were then guided into the intercondylar notch. Cruciates were identified, probed and found to be stable. The scope and probe were then guided into lateral compartment. There was a complex tear involving the midbody and posterior horn lateral meniscus. There were grade 2 chondromalacia changes of the lateral tibial plateau with osteochondral flap tears present. There was thick reactive synovitis anteriorly. I performed a partial lateral meniscectomy getting down to stable meniscal tissue. I performed a chondroplasty of the tibial plateau getting down to stable osteochondral tissue. I performed a partial synovectomy decompressing the thick reactive synovitis. The residual meniscus was stable. The residual osteochondral surface of the lateral tibial plateau was stable. There was good decompression of synovitis. The scope was in guided back into the suprapatellar compartment. I introduced a motorized shaver into the super patellar compartment. I debrided some piecemeal fragments of meniscus I encountered. I performed a partial synovectomy. Shaver was removed. There was good decompression of the synovitis. I took one more look on the entire knee, no residual debris. Instruments were now removed from the joint. The joint was infiltrated with .25% Marcaine. Steri-Strips were applied to the portal sites. Sterile dressings were applied. The patient was placed into a ROSALBA hose. No tourniquet was utilized. The patient was awakened, transferred to a bed and taken to recovery stable satisfactory condition.
[2021-06-09 15:33] VITALS: RESP 14
[2021-06-09] MEDS ORDERED: diphenhydrAMINE 50 MG/ML 1 ML VIAL ONE (15:36)
[2021-06-09] MEDS ORDERED: diphenhydrAMINE 50 MG/ML 1 ML VIAL IVP ONE (15:39)
[2021-06-09 16:06] VITALS: BP 139/84; PULSE 87
== END 2021-06-09 16:27 | disposition home or self-care (01) ==
LOC: OR 12:21
PROVIDERS: ATTEND Orthopaedic Surgery
DX: M23.200 Derangement of unspecified lateral meniscus due to old tear or injury, right knee (principal); M94.261 Chondromalacia, right knee; M65.861 Other synovitis and tenosynovitis, right lower leg; I10 Essential (primary) hypertension; E78.5 Hyperlipidemia, unspecified; E03.9 Hypothyroidism, unspecified; J45.909 Unspecified asthma, uncomplicated; G47.33 Obstructive sleep apnea (adult) (pediatric); F41.9 Anxiety disorder, unspecified; E66.01 Morbid (severe) obesity due to excess calories; Z68.41 Body mass index [BMI] 40.0-44.9, adult; Z90.710 Acquired absence of both cervix and uterus; Z98.891 History of uterine scar from previous surgery; Z98.890 Other specified postprocedural states; Z79.890 Hormone replacement therapy; Z79.899 Other long term (current) drug therapy
CPT/HCPCS: 29881; J2400; J2250; J1200; J1100; J0690; J2405; J2001; J3010; J2370

== ENCOUNTER → 2022-01-25 | Outpatient (CLI) | payer BC ==
--- NOTE | 2022-01-26 03:29 | MR ---
EXAMINATION TYPE: MR knee LT wo con DATE OF EXAM: 01/25/2022 COMPARISON: 04/23/2021 HISTORY: L knee pain Multiplanar multiecho imaging of the left knee with no contrast. The anterior and posterior cruciate ligaments appear intact. There is knee joint effusion. There is e vidence of partial tear of the lateral collateral ligament. The patella is intact. There is oblique tear of the posterior horn medial meniscus extending to the i nferior surface. There is thinning and increased signal in the anterior horn of the lateral meniscus. No evidence of focal bone destruction. No fracture seen. IMPRESSION: Knee joint effusion. There is oblique tear posterior horn of the medial meniscus. There is degenerati ve thinning and tears in the anterior horn of the lateral meniscus. Partial tear of the lateral colla teral ligament.
== END | disposition home or self-care (01) ==
LOC: RADMRIMAIN 10:45
PROVIDERS: ATTEND Orthopaedic Surgery
DX: M23.322 Other meniscus derangements, posterior horn of medial meniscus, left knee (principal); M17.12 Unilateral primary osteoarthritis, left knee

== ENCOUNTER → 2022-03-07 | Outpatient (CLI) | payer BC ==
[2022-03-07 22:34] LABS: Basophils # (A) 0.12 X 10*3/uL (0.00-0.10); Eosinophils # (A) 0.14 X 10*3/uL (0.04-0.35); Eosinophils % (A) 1.1 %; HCT 47.7 % (37.2-46.3); HGB 16.4 g/dL (12.0-15.0); Immature Grans, Automated 0.3 %; Lymphocytes # (A) 3.59 X 10*3/uL (0.90-5.00); Lymphocytes % (A) 28.6 %; MCH 30.5 pg (27.0-32.0); MCHC 34.4 g/dL (32.0-37.0); MCV 88.7 fL (80.0-97.0); Monocytes # (A) 1.27 X 10*3/uL (0.20-1.00); Monocytes % (A) 10.1 %; NRBC Per 100 WBC 0 /100 WBCS (0.0-0.0); Neutrophils # (A) 7.41 X 10*3/uL (1.80-7.70); Neutrophils % (A) 58.9 %; Platelet Count 497 X 10*3/uL (140-440); RBC 5.38 X 10*6/uL (4.10-5.20); RDW 12.2 % (11.5-14.5); WBC 12.57 X 10*3/uL (4.50-10.00)
[2022-03-07 23:14] LABS: Anion Gap 20.1 mmol/L (10.00-18.00); Carbon Dioxide 28.5 mmol/L (20.0-27.5); Potassium 3.5 mmol/L (3.5-5.5)
== END | disposition home or self-care (01) ==
LOC: LABPAT 14:06
PROVIDERS: ATTEND Orthopaedic Surgery
DX: Z01.818 Encounter for other preprocedural examination (principal); M23.92 Unspecified internal derangement of left knee; R94.31 Abnormal electrocardiogram [ECG] [EKG]
CPT/HCPCS: 80051; 85025; 93005

== ENCOUNTER 2022-03-09 09:17 | Day surgery (SDC) | payer BC ==
[2022-03-07 12:53] VITALS: BMI 43.9
--- NOTE | 2022-03-08 15:08 | HP ---
HISTORY AND PHYSICAL REASON FOR ADMISSION: Surgery is scheduled for 03/09/2022 HISTORY OF PRESENT ILLNESS: Himanshu Britton is a 57-year-old patient seen with progressive left knee pain. After treatment options discussed, the patient elected to proceed with left knee arthroscopy. Consent obtained. PAST MEDICAL HISTORY: Hypothyroidism, hypertension, hyperlipidemia. SURGICAL HISTORY: Carpal tunnel surgery, hysterectomy, section. MEDICATIONS: Prozac, levothyroxine, lisinopril, . ALLERGIES: None. SOCIAL HISTORY: Patient denies tobacco use. PHYSICAL EVALUATION OF THE LEFT KNEE: Range of motion 0-120. Mild effusion. Tenderness medial joint line. Positive medial Kareem's. Ligaments stable. Hip rotation without pain. Distal neurovascular exam intact. RADIOGRAPHS: Left knee radiographs revealed mild osteoarthritic changes. MRI left knee revealed medial meniscal tear. IMPRESSION: 1. Internal derangement of left knee with medial meniscal tear. 2. Hypertension. 3. Hyperlipidemia. 4. Hypothyroidism. PLAN: Left knee arthroscopy with partial medial meniscectomy and debridement. Surgery 03/09/2022. MMODL / IJN: [id number] /
[~2022-03-09 09:17] MED LIST changes: -LIDOCAINE 1% (10MG/ML) FOR IV START INTRADERMA PRN; -MIDAZOLAM 2 MG/2 ML VIAL IV PRN
[2022-03-09 10:08] LABS: Glucose,Whole Blood 220 mg/dL (70-110)
[2022-03-09] MEDS ORDERED: ePHEDrine 50 MG/ML 1 ML VIAL ONE (11:14)
[2022-03-09] MEDS ORDERED: MIDAZOLAM 2 MG/2 ML VIAL ONE (11:14)
[2022-03-09] MEDS ORDERED: PHENYLEPHRINE-0.9% NACL SYG 1,000 MCG/10 ML SYRINGE ONE (11:14)
[2022-03-09] MEDS ORDERED: CHLOROPROCAINE 3% 30 MG/ML 20 ML VIAL ONE (11:14)
[2022-03-09] MEDS ORDERED: fentaNYL (PF) 50 MCG/ML 2 ML AMP ONE (11:14)
[2022-03-09] MEDS ORDERED: PROPOFOL 10 MG/ML 20 ML VIAL IV ONE (11:14)
[2022-03-09] MEDS ORDERED: BUPIVACAINE (PF) 0.25% 30 ML VIAL INTRAARTIC ONE ×2 (11:42→11:50)
--- NOTE | 2022-03-09 12:04 | P.OP ---
Date of Procedure: 03/09/22 Preoperative Diagnosis: Internal derangement left knee Postoperative Diagnosis: 1. Tear medial and lateral meniscus left knee 2. Grade 2/3 chondromalacia patella left knee 3. Reactive synovitis medial, lateral and suprapatellar compartments left knee Procedure(s) Performed: 1. Arthroscopic partial medial and lateral meniscectomy left knee 2. Arthroscopic chondroplasty patella left knee 3. Arthroscopic partial synovectomy medial, lateral and suprapatellar compartments left knee Anesthesia: GETA, local Surgeon: Ralph Smiley Estimated Blood Loss (ml): 7 Pathology: none sent Condition: stable Disposition: PACU Indications for Procedure: 57-year-old patient seen with progressive left knee pain. We discussed treatment options. She elected to proceed with arthroscopy. Consent was obtained. Operative Findings: See description of procedure Description of Procedure: Patient was taken to the operative suite. Patient underwent a general anesthetic by the department of anesthesia. Patient was given preoperative antibiotics. The left lower extremity was placed in a well-padded arthroscopic leg graves. The left leg was prepped and draped in the normal sterile orthopedic fashion. A lateral parapatellar and suprapatellar incision was made. Trochars were inserted. Arthroscopy was initiated. Suprapatellar pouch revealed diffuse thick reactive synovitis. The patellofemoral joint appeared to articulate congruently. There was grade 2/3 chondromalacia of the patella with some osteochondral flap tears present along the medial facet. The scope was guided into the medial gutter. No loose bodies or plica were identified. The scope was then guided into the medial compartment. A medial parapatellar incision was made. Trocar inserted followed by probe. There was a radial tear involving the posterior horn medial meniscus and a radial tear involving the anterior horn medial meniscus. Now there were grade 1 chondromalacia changes throughout the medial compartment. There was some thick reactive synovitis anteriorly. I performed a partial medial meniscectomy involving both the posterior and anterior horns getting down to stable meniscal tissue. I performed a partial synovectomy decompressing the reactive synovitis. The residual meniscus was stable. There was good decompression of the synovitis. Scope and probe were then guided into the intercondylar notch. Cruciates were identified, probed and found to be stable. The scope and probe were then guided into lateral compartment. There was a radial tear involving the anterior horn of the lateral meniscus. There were grade 1 chondromalacia changes throughout the lateral compartment with no osteochondral tears present. There was thick reactive synovitis anteriorly. I performed a partial lateral meniscectomy getting down to stable meniscal tissue. I performed a partial synovectomy decompressing the reactive synovitis. The residual meniscus was stable. There was good decompression of the synovitis. The scope was in guided back into the suprapatellar compartment. I introduced a motorized shaver into the suprapatellar compartment. I performed a chondroplasty of the patella getting down to stable osteochondral tissue. I performed a partial synovectomy decompressing the reactive synovitis. The shaver was removed. The residual osteochondral surface of the patella appeared stable. There was good decompression of synovitis. I took one more look on the entire knee, no residual debris. Instruments were now removed from the joint. The joint was infiltrated with .25% Marcaine. Steri-Strips were applied to the portal sites. Sterile dressings were applied. The patient was placed into a ROSALBA hose. No tourniquet was utilized. The patient was awakened, transferred to a bed and taken to recovery stable satisfactory condition.
[2022-03-09] MEDS ORDERED: ALBUMIN HUMAN 5% (12.5gm) 250 ML BOTTLE IVPB ONE (12:19)
[2022-03-09 12:27] VITALS: RESP 16; TEMP 97.1
[2022-03-09 13:05] LABS: Glucose,Whole Blood 217 mg/dL (70-110)
[2022-03-09] MEDS ORDERED: INSULIN ASPART (NovoLOG) 100 UNIT/ML VIAL SQ ONE (13:09)
[2022-03-09 13:43] LABS: Glucose,Whole Blood 227 mg/dL (70-110)
[2022-03-09 13:49] VITALS: BP 118/73; PULSE 88
== END 2022-03-09 14:07 | disposition home or self-care (01) ==
LOC: OR 09:17
PROVIDERS: ATTEND Orthopaedic Surgery
DX: M23.204 Derangement of unspecified medial meniscus due to old tear or injury, left knee (principal); M23.201 Derangement of unspecified lateral meniscus due to old tear or injury, left knee; M22.42 Chondromalacia patellae, left knee; M65.862 Other synovitis and tenosynovitis, left lower leg; E03.9 Hypothyroidism, unspecified; I10 Essential (primary) hypertension; E78.5 Hyperlipidemia, unspecified; Z98.891 History of uterine scar from previous surgery; Z90.710 Acquired absence of both cervix and uterus; Z98.890 Other specified postprocedural states; Z79.890 Hormone replacement therapy; Z79.899 Other long term (current) drug therapy; J45.909 Unspecified asthma, uncomplicated; G47.33 Obstructive sleep apnea (adult) (pediatric); E11.9 Type 2 diabetes mellitus without complications; Z87.442 Personal history of urinary calculi; F41.9 Anxiety disorder, unspecified; F32.A Depression, unspecified; K21.9 Gastro-esophageal reflux disease without esophagitis; Z79.84 Long term (current) use of oral hypoglycemic drugs; Z79.891 Long term (current) use of opiate analgesic; E66.9 Obesity, unspecified; Z68.41 Body mass index [BMI] 40.0-44.9, adult
CPT/HCPCS: 29880; J2400; P9045; J2250; J1100; J0690; J2405; J3010; J2370; J2704

== ENCOUNTER 2022-11-28 08:39 | Inpatient (IN) | payer BC ==
--- NOTE | 2022-11-28 06:43 | P.HPOR ---
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 this document. CC: Win Kirkland MD Past Medical History Past Medical History: Asthma, Diabetes Mellitus, GERD/Reflux, Hyperlipidemia, Hypertension, Osteoarthritis (OA), Sleep Apnea/CPAP/BIPAP, Thyroid Disorder Additional Past Medical History / Comment(s): CHRONIC BACK PAIN, HX KIDNEY STONE, USES CPAP, Right back and leg, pain down back of leg and buttocks. uses cane for long distance. History of Any Multi-Drug Resistant Organisms: None Reported Past Surgical History: Back Surgery, Section, Heart Catheterization, Hysterectomy, Orthopedic Surgery, Tonsillectomy Additional Past Surgical History / Comment(s): Carpal Tunnel Surgery bilateral wrists, fusion L5-S1, mass removed left middle finger, bilateral knee arthroscopies. Past Anesthesia/Blood Transfusion Reactions: Previous Problems w/ Anesthesia Additional Past Anesthesia/Blood Transfusion Reaction / Comment(s): Difficult IV start. No history of blood transfusions. "Had trouble breathing after general anesthesia"-did fine after breathing tx. per pt., did ok w/spinal in past 1st time, 2nd time BP was very low post-op Smoking Status: Former smoker - Past Family History Sister(s) Family Medical History: Cancer Additional Family Medical History / Comment(s): THYROID Cancer. Father Family Medical History: Cancer, CVA/TIA, Myocardial Infarction ([place]) Additional Family Medical History / Comment(s): Prostate Cancer. Mother Family Medical History: CVA/TIA Additional Family Medical History / Comment(s): CABG-valve replacement 2016, had stroke post surgery. Medications and Allergies Home Medications Medication Instructions Recorded Confirmed Type Ibuprofen [Motrin] 800 mg PO Q8HR PRN 02/26/14 11/22/22 History [place]-3 Acid Ethyl Esters [Lovaza] 2 gm PO BID 02/26/14 11/22/22 History Albuterol Sulfate [Ventolin HFA] 1 - 2 puff INHALATION Q4HR PRN 04/15/14 11/22/22 History DULoxetine HCL [Cymbalta] 60 mg PO QAM 11/03/15 11/22/22 History OXcarbazepine [Trileptal] 600 mg PO BID 11/03/15 11/22/22 History Pantoprazole Sodium [Protonix] 40 mg PO QAM 11/03/15 11/22/22 History Cetirizine HCl [Zyrtec] 10 mg PO HS 04/16/18 11/22/22 History Multivitamin [Multivitamins Adult 1 tab PO DAILY 04/16/18 11/22/22 History Gummies] Fluticasone Propion/Salmeterol 1 puff INHALATION BID 04/22/18 11/22/22 History [Advair 250-50 Diskus] Levothyroxine Sodium [Levoxyl] 50 mcg PO QAM 04/22/18 11/22/22 History Furosemide [Lasix] 40 mg PO DAILY 12/06/18 11/22/22 History Hydrocodone/Acetaminophen [[place] 1 tab PO BID PRN 12/06/18 11/22/22 History 10-325] Rosuvastatin [Crestor] 10 mg PO HS 12/06/18 11/22/22 History ALPRAZolam [Xanax] 0.5 mg PO Q8HR PRN 01/18/21 11/22/22 History Dulaglutide [Trulicity] 0.75 mg SQ SA 03/07/22 11/22/22 History metFORMIN HCL [Glucophage] 500 mg PO BID 03/07/22 11/22/22 History amLODIPine [Norvasc] 5 mg PO DAILY 09/13/22 11/22/22 History lisinopriL [Zestril] 20 mg PO DAILY 09/13/22 11/22/22 History methocarbamoL [Methocarbamol] 750 mg PO HS 09/13/22 11/22/22 History Allergies Allergy/AdvReac Type Severity Reaction Status Date / Time No Known Allergies Allergy Verified 11/22/22 14:28 Physical Examination Osteopathic Statement: *. No significant issues noted on an osteopathic structural exam other than those noted in the History and Physical/Consult.
[~2022-11-28 08:39] MED LIST changes: +ACETAMINOPHEN TAB 500 MG TAB PO PRN; +GABAPENTIN 300 MG CAP PO PRN; -HYDROmorphone 0.5 MG/0.5 ML SYRINGE IVP PRN; -LACTATED RINGERS 1,000 ML IV SCH; +LIDOCAINE 1% (10MG/ML) FOR IV START INTRADERMA PRN; +MIDAZOLAM 2 MG/2 ML VIAL IV PRN; +ONDANSETRON 4 MG/2 ML VIAL IVP PRN; +TRANEXAMIC ACID IN NACL,ISO-OS 1,000 MG in SALINE 1 100ML.BAG IVPB PRN
[2022-11-28] MEDS ORDERED: ACETAMINOPHEN TAB 500 MG TAB ONE ×2 (09:16→09:33)
[2022-11-28 09:55] LABS: Glucose,Whole Blood 106 mg/dL (70-110)
[2022-11-28] MEDS: LACTATED RINGERS 1,000 ML IV SCH (10:05)
[2022-11-28] MEDS ORDERED: MIDAZOLAM 2 MG/2 ML VIAL IVP ONE (10:16)
[2022-11-28] MEDS ORDERED: ePHEDrine 50 MG/ML 1 ML VIAL ONE (11:33)
[2022-11-28] MEDS ORDERED: fentaNYL (PF) 50 MCG/ML 2 ML AMP ONE (11:33)
[2022-11-28] MEDS ORDERED: NEOSTIGMINE 1 MG/ML 10 ML VIAL ONE (11:33)
[2022-11-28] MEDS ORDERED: ROCURONIUM 10 MG/ML (5 ML VIAL) IV ONE (11:33)
[2022-11-28] MEDS ORDERED: MIDAZOLAM 2 MG/2 ML VIAL ONE (11:33)
[2022-11-28] MEDS ORDERED: TRANEXAMIC ACID IN NACL,ISO-OS 1,000 MG/100 ML BAG ONE (11:33)
[2022-11-28] MEDS ORDERED: HYDROmorphone (PF) 1 MG/ML ONE (11:33)
[2022-11-28] MEDS ORDERED: GLYCOPYRROLATE 0.2 MG/ML 2 ML VIAL ONE (11:33)
[2022-11-28] MEDS ORDERED: PROPOFOL 10 MG/ML 20 ML VIAL IV ONE (11:33)
[2022-11-28] MEDS ORDERED: SUCCINYLCHOLINE CHLORIDE 200 MG/10 ML VIAL IV ONE (11:33)
[2022-11-28] MEDS ORDERED: ONDANSETRON 4 MG/2 ML VIAL ONE (11:33)
[2022-11-28] MEDS ORDERED: LIDOCAINE 2% INJ 20 MG/ML (2 ML VIAL) ONE (11:33)
[2022-11-28] MEDS ORDERED: LIDOCAINE 4% LTA KIT (4 ML) TOPICAL ONE (11:33)
[2022-11-28] MEDS ORDERED: LACTATED RINGERS 1,000 ML IV ONE ×3 (12:48→17:00)
[2022-11-28] MEDS ORDERED: THROMBIN (BOVINE) 5,000 UNIT VIAL TOPICAL ONE (13:03)
[2022-11-28] MEDS ORDERED: GELATIN SPONGE,ABSORB (LARGE) 1 EACH SPONGE TOPICAL ONE (13:03)
[2022-11-28] MEDS ORDERED: GENTAMICIN 80 MG in SODIUM CHLORIDE 0.9% IRRIGATIO 3,000 ML IRRIGATION ONE (13:04)
[2022-11-28] MEDS ORDERED: ceFAZolin 3,000 MG in SODIUM CHLORIDE 0.9% IRRIGATIO 3,000 ML IRRIGATION ONE (13:04)
[2022-11-28] MEDS ORDERED: MAGNESIUM HYDROXIDE 2,400 MG/10 ML CUP PO PRN (13:54)
[2022-11-28] MEDS ORDERED: HYDROcodone/APAP 5-325MG 1 EACH TAB PO PRN (13:54)
[2022-11-28] MEDS ORDERED: CYCLOBENZAPRINE 5 MG TAB PO PRN (13:54)
[2022-11-28] MEDS ORDERED: oxyCODONE-APAP 5-325MG 1 EACH TAB PO PRN (13:57)
[2022-11-28] MEDS ORDERED: VANCOMYCIN 1,000 MG VIAL MISCELLANE ONE (15:14)
[2022-11-28] MEDS: HYDROmorphone 0.5 MG/0.5 ML SYRINGE IVP PRN ×5 (16:35→22:46)
--- NOTE | 2022-11-28 16:51 | FL ---
Intraoperative/procedural fluoroscopic services were provided. Total fluoroscopy time is 47 seconds w ith a total of 6 submitted images to PACS. Please see the operative/procedural note for further otilio salmeron. DAP: [phone]
[2022-11-28] MEDS: GABAPENTIN 300 MG CAP PO SCH ×2 (18:53→22:46)
[2022-11-28] MEDS: ACETAMINOPHEN TAB 325 MG TAB PO SCH (19:00)
[2022-11-28] MEDS ORDERED: ALPRAZolam 0.5 MG TAB PO PRN (19:12)
[2022-11-28] MEDS: HYDROcodone/APAP 10-325MG 1 EACH TAB PO PRN (20:58)
[2022-11-28] MEDS: SYMBICORT 80-4.5 MCG INHALER INHALATION SCH (21:28)
[2022-11-28] MEDS ORDERED: IPRATROPIUM-ALBUTEROL 3 ML NEB INHALATION PRN (22:42)
[2022-11-28] MEDS: ATORVASTATIN 20 MG TAB PO SCH (22:46)
[2022-11-28] MEDS: OXcarbazepine 300 MG TAB PO SCH (22:46)
[2022-11-29] MEDS: ACETAMINOPHEN TAB 325 MG TAB PO SCH ×5 (00:24→22:47)
[2022-11-29] MEDS: HYDROmorphone 1 MG/ML 1 ML SYRINGE IVP PRN ×4 (00:24→22:47)
--- NOTE | 2022-11-29 02:10 | P.CONS ---
History of Present Illness - Reason for Consult Consult date: 11/28/22 - Chief Complaint post op medical care - History of Present Illness 57 year old female with controlled DM on oral meds, hypertension , and hypothyroid patient came in for scheduled lumbar spine surgery , which she tolerated well, patient already started moving, and tolerated PO intake, pain controlled with meds. denies any observed immediate complications post op. denies any chest pain or trouble breathing , denies any nausea or vomiting. Review of Systems Pertinent positives as noted in HPI. All other systems were reviewed and are negative Past Medical History Past Medical History: Asthma, Diabetes Mellitus, GERD/Reflux, Hyperlipidemia, Hypertension, Osteoarthritis (OA), Sleep Apnea/CPAP/BIPAP, Thyroid Disorder Additional Past Medical History / Comment(s): CHRONIC BACK PAIN, HX KIDNEY STONE, USES CPAP, Right back and leg, pain down back of leg and buttocks. uses cane for long distance. History of Any Multi-Drug Resistant Organisms: None Reported Past Surgical History: Back Surgery, Section, Heart Catheterization, Hysterectomy, Orthopedic Surgery, Tonsillectomy Additional Past Surgical History / Comment(s): Carpal Tunnel Surgery bilateral wrists, fusion L5-S1, mass removed left middle finger, bilateral knee arthroscopies. Past Anesthesia/Blood Transfusion Reactions: Previous Problems w/ Anesthesia Additional Past Anesthesia/Blood Transfusion Reaction / Comm: Difficult IV start. No history of blood transfusions. "Had trouble breathing after general anesthesia"-did fine after breathing tx. per pt., did ok w/spinal in past 1st time, 2nd time BP was very low post-op Smoking Status: Former smoker - Past Family History Sister(s) Family Medical History: Cancer Additional Family Medical History / Comment(s): THYROID Cancer. Father Family Medical History: Cancer, CVA/TIA, Myocardial Infarction ([place]) Additional Family Medical History / Comment(s): Prostate Cancer. Mother Family Medical History: CVA/TIA Additional Family Medical History / Comment(s): CABG-valve replacement 2016, had stroke post surgery. Medications and Allergies Home Medications Medication Instructions Recorded Confirmed Type Ibuprofen [Motrin] 800 mg PO Q8HR PRN 02/26/14 11/22/22 History [place]-3 Acid Ethyl Esters [Lovaza] 2 gm PO BID 02/26/14 11/22/22 History Albuterol Sulfate [Ventolin HFA] 1 - 2 puff INHALATION Q4HR PRN 04/15/14 11/22/22 History DULoxetine HCL [Cymbalta] 60 mg PO QAM 11/03/15 11/22/22 History OXcarbazepine [Trileptal] 600 mg PO BID 11/03/15 11/22/22 History Pantoprazole Sodium [Protonix] 40 mg PO QAM 11/03/15 11/22/22 History Cetirizine HCl [Zyrtec] 10 mg PO HS 04/16/18 11/22/22 History Multivitamin [Multivitamins Adult 1 tab PO DAILY 04/16/18 11/22/22 History Gummies] Fluticasone Propion/Salmeterol 1 puff INHALATION BID 04/22/18 11/22/22 History [Advair 250-50 Diskus] Levothyroxine Sodium [Levoxyl] 50 mcg PO QAM 04/22/18 11/22/22 History Furosemide [Lasix] 40 mg PO DAILY 12/06/18 11/22/22 History Hydrocodone/Acetaminophen [[place] 1 tab PO BID PRN 12/06/18 11/22/22 History 10-325] Rosuvastatin [Crestor] 10 mg PO HS 12/06/18 11/22/22 History ALPRAZolam [Xanax] 0.5 mg PO Q8HR PRN 01/18/21 11/22/22 History Dulaglutide [Trulicity] 0.75 mg SQ SA 03/07/22 11/22/22 History metFORMIN HCL [Glucophage] 500 mg PO BID 03/07/22 11/22/22 History amLODIPine [Norvasc] 5 mg PO DAILY 09/13/22 11/22/22 History lisinopriL [Zestril] 20 mg PO DAILY 09/13/22 11/22/22 History Cyclobenzaprine [Flexeril] 10 mg PO HS 11/28/22 11/28/22 History Gabapentin [Neurontin] 300 mg PO HS 11/28/22 11/28/22 History Allergies Allergy/AdvReac Type Severity Reaction Status Date / Time No Known Allergies Allergy Verified 11/28/22 09:14 Physical Exam Vitals: Vital Signs Temp Pulse Pulse Resp BP Pulse Ox 11/28/22 18:08 92 16 156/71 95 11/28/22 17:53 87 16 153/74 95 11/28/22 17:38 89 16 148/71 95 11/28/22 17:23 88 16 152/70 93 L 11/28/22 17:08 83 16 148/70 98 11/28/22 16:53 76 16 134/61 96 11/28/22 16:38 74 16 114/55 95 11/28/22 16:23 75 16 115/55 96 11/28/22 16:08 97.6 F 86 16 115/52 99 11/28/22 10:27 69 16 134/76 98 11/28/22 09:29 97.6 F 68 16 149/71 94 L Intake and Output 11/28/22 11/28/22 11/28/22 06:59 14:59 22:59 Intake Total 2752 800 Output Total 1075 Balance 2752 -275 Intake: IV 2752 800 Output: Urine 725 Estimated Blood Loss 350 Other: Weight 97.522 kg Constitutional: No acute distress, conversant, pleasant Eyes: Anicteric sclerae, moist conjunctiva, Pupils equal round reactive to light ENMT: NC/AT Oropharynx clear, no erythema, or exudates Neck: Supple, no masses, or JVD No carotid bruits No thyromegaly Lungs: Clear to auscultation Clear to percussion Normal respiratory effort, no accessory muscle use Cardiovascular: Heart regular in rate and rhythm, No murmurs, gallops, or rubs No peripheral edema Abdominal: Soft Nontender, no guarding, rebound or rigidity Abdomen moving with respiration Normoactive bowel sounds No hepatomegaly, No splenomegaly No palpable mass No abdominal wall hernia noted Skin: Normal temperature, tone, texture, turgor No induration No subcutaneous nodules No rash, lesions No ulcers Extremities: No digital cyanosis No clubbing Pedal pulses intact and symmetrical Radial pulses intact and symmetrical No calf tenderness Psychiatric: Alert and oriented to person, place and time Appropriate affect fair judgment Neuro Muscles Strength 5/5 in all 4 extremities Sensation to light touch grossly present throughout Cranial nerves II-XII grossly intact Lymphatics: no palpable cervical or supraclavicular lymph nodes patient has a drain in place, and martinez cath Results CBC & Chem 7: 11/28/22 09:41 Labs: Abnormal Lab Results - Last 24 Hours (Table) 11/28/22 Range/Units 09:41 Potassium 3.2 L (3.5-5.1) mmol/L Assessment and Plan Assessment: lumbar spine revision decompression and fusion , POD zero management per orthopedic team hypertension , controlled resume home meds, lisinopril and amlodipine DM , controlled hold oral hypoglycemic agents insulin sliding scale hypothyroid resume home levothyroxine check AM cbc and cmp thank you for this consultation , patient stable from medical stand point
[2022-11-29] MEDS: INSULIN ASPART (NovoLOG) 100 UNIT/ML VIAL SQ SCH ×2 (03:07→21:20)
[2022-11-29] MEDS: LEVOTHYROXINE 50 MCG TAB PO SCH (04:44)
[2022-11-29] MEDS: LACTATED RINGERS 1,000 ML IV SCH (05:48)
[2022-11-29] MEDS: HYDROcodone/APAP 10-325MG 1 EACH TAB PO PRN ×2 (05:55→12:32)
[2022-11-29] MEDS: PANTOPRAZOLE 40 MG TABLET PO SCH (05:56)
[2022-11-29 06:03] LABS: Glucose,Whole Blood 111 mg/dL (70-110)
[2022-11-29] MEDS ORDERED: oxyCODONE-APAP 5-325MG 1 EACH TAB PO PRN (08:12)
--- NOTE | 2022-11-29 08:19 | P.PN ---
Subjective Progress Note Date: 11/29/22 Principal diagnosis: 1. 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 Status post L5-S1 posterior lateral interbody fusion with likely pseudoarthrosis 3. Lower extremity weakness with rotator extremity radiculopathy related to spondylosis and severe stenosis 4. Neurogenic claudication 5. Lower extremity paresthesias 6. Low back pain Patient seen and examined this morning. Patient is resting completely in bed. Patient reports moderate low back pain, informed patient of medication options. She verbalizes understanding. Patient states she has not been up since the procedure. She is performing bed exercises without difficulty. Surgical incision is clean dry and intact with Hemovac present, approximately 100 mL output overnight. Patient denies any numbness or tingling to the bilateral lower extremities. She is looking forward to working with physical therapy. Martinez catheter may be removed once patient is up and about. Patient has been afebrile, denies nausea/vomiting, or chest pain. Objective - Vital Signs Vital signs: Vital Signs Temp 98.6 F 11/29/22 02:00 Pulse 97 11/29/22 02:00 Resp 20 11/28/22 20:00 BP 160/75 11/29/22 02:00 Pulse Ox 90 L 11/29/22 02:00 FiO2 Intake & Output 11/28/22 11/29/22 11/29/22 18:59 06:59 18:59 Intake Total 3552 Output Total 1075 1300 Balance 2477 -1300 Weight 97.522 kg Intake: IV 3552 Output: Drainage 100 Back 100 Urine 725 1200 Estimated Blood Loss 350 Other: Voiding Method Indwelling Catheter - Exam Physical Examination General: The patient is awake and alert, in no acute distress Skin: Skin is warm and dry with no obvious rashes or lesions. Surgical incision to the lumbar region, surgical dressing is clean dry and intact with Hemovac present, approximately 100 mL output overnight. Eye: Pupils are equal, round and reactive to light, extra-ocular movements are intact; there is normal conjunctiva bilaterally. Neck: The neck is supple, there is no tenderness and ROM intact. Cardiovascular: There is a regular rate and rhythm. No murmur, rub or gallop is appreciated. Respiratory: Lungs are clear to auscultation, respirations are non-labored, breath sounds are equal. Gastrointestinal: Soft, non-distended, non-tender abdomen. Back: There is no tenderness to palpation in the midline, paralumbar, parathoracic or buttocks region. There is no obvious deformity . Musculoskeletal: ROM limited secondary to pain and stiffness from surgical procedure. Muscle strength in all major muscle groups of bilateral upper extremities 5/5, bilateral lower extremities 4+/5. Neurological: CN 2-12 intact. There are no obvious motor or sensory deficits. Movement and coordination equal and intact. Sensory exam to light touch intact C5-T1 and intact from L2-S1. Reflexes 2/4 in bilateral upper and lower extremities. Negative Hoffmans, babinski, and clonus signs. Psychiatric: Cooperative, appropriate mood & affect, normal judgment. - Labs CBC & Chem 7: 11/28/22 09:41 Labs: Abnormal Lab Results - Last 24 Hours (Table) 11/28/22 11/29/22 Range/Units 09:41 06:01 Potassium 3.2 L (3.5-5.1) mmol/L POC Glucose (mg/dL) 111 H (70-110) mg/dL Assessment and Plan Assessment: Postop day 1: Revision L3-S1 decompression and fusion 1. 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 Status post L5-S1 posterior lateral interbody fusion with likely pseudoarthrosis 3. Lower extremity weakness with rotator extremity radiculopathy related to spondylosis and severe stenosis 4. Neurogenic claudication 5. Lower extremity paresthesias 6. Low back pain Plan: -Appreciate risk consultant and team management. -Activity: Ambulate QID, OOB all meals, up and about, limit lifting bending twisting to less than 5 lbs. Use walker or cane if needed for stability. -Daily PT/OT, increase ambulation strength and balance. -Brace when up and about, not needed in bed or chair -Pain control: Adequate at this time -Meds: reviewed -GI ppx: senna, Miralax -DC martinez when up and about, bedside commode if needed -DVT PPX: OK to restart Heparin tonight -Hygiene: Shower today. Maintain dressing clean and dry. Meticulous cleaning after BMs away from the incision site -Drains: Maintain for now. -Encourage IS 10x/hr -Dispo: Anticipate discharge home in the next 48hrs with homecare *I reviewed and discussed this case with my attending Dr. Colvin, whom has reviewed this chart and films and is in agreement with assessment and plan of care as outlined above. I have personally seen and examined the patient, performed the documentation and the assessment and plan as written. Number of minutes spent on the visit: 20m.
[2022-11-29] MEDS: SYMBICORT 80-4.5 MCG INHALER INHALATION SCH ×2 (08:54→21:52)
[2022-11-29] MEDS: CYCLOBENZAPRINE 5 MG TAB PO SCH ×3 (09:17→21:12)
[2022-11-29] MEDS: amLODIPine 5 MG TAB PO SCH (09:17)
[2022-11-29] MEDS: GABAPENTIN 300 MG CAP PO SCH ×3 (09:17→21:12)
[2022-11-29] MEDS: OXcarbazepine 300 MG TAB PO SCH ×2 (09:17→21:12)
[2022-11-29] MEDS: DULoxetine HCL 60 MG CAPSULE.DR PO SCH (09:17)
[2022-11-29] MEDS: lisinopriL 20 MG TAB PO SCH (09:17)
--- NOTE | 2022-11-29 09:35 | CT ---
EXAMINATION TYPE: CT lumbar spine wo con DATE OF EXAM: 11/29/2022 COMPARISON: 09/21/2022 HISTORY: s/p revision L3-S1 decompression fusion CT DLP: 1986.6 mGycm CONTRAST: None TECHNIQUE: CT of the lumbar spine is performed on a spiral scan at 3 mm thick sections. Reconstructed images are performed in the coronal and sagittal planes. FINDINGS: Postsurgical changes are within lumbar spine. Disc spacers are present L3-4 L4-5 and L5-S1. Pedicle screws are present L3-S1. T12-L1: No focal disc herniation or significant disc bulge is evident. No spinal canal stenosis or neural foraminal stenosis is present. L1-L2: No focal disc herniation or significant disc bulge is evident. No spinal canal stenosis or n eural foraminal stenosis is present L2-L3: Mild disc bulges anterior thecal sac contact. No AP spinal canal stenosis present. Neural fora men appear patent L3-L4: No focal disc herniation or significant disc bulge is evident. No spinal canal stenosis or n eural foraminal stenosis is present. The right L3 pedicle screw is somewhat lateral along the vertebr al body margin. This level has significant beam hardening artifact limiting evaluation of the spinal canal. L4-L5: No focal disc herniation or significant disc bulge is evident. Beam hardening artifact limits evaluation of the spinal canal. On the sagittal plain images there is suggestion of endplate spurring with thecal sac compression. L5-S1: No focal disc herniation or significant disc bulge is evident. There is limited evaluation of the spinal canal due to significant beam hardening artifact. Vertebral alignment appears normal. Vertebral body heights appear preserved. Note is made of a 0.4 cm nonobstructing mid right renal stone. IMPRESSION: 1. Postsurgical changes L3-4 through L5-S1. The pain hardening artifact causes limitation on canal ev aluation.
[2022-11-29 10:54] LABS: Basophils # (A) 0.05 X 10*3/uL (0.00-0.10); Basophils % (A) 0.4 %; Eosinophils # (A) 0.02 X 10*3/uL (0.04-0.35); Eosinophils % (A) 0.1 %; HCT 29.4 % (37.2-46.3); Immature Grans, Automated 0.4 %; Lymphocytes # (A) 2.54 X 10*3/uL (0.90-5.00); Lymphocytes % (A) 17.8 %; MCH 30.3 pg (27.0-32.0); MCV 89.1 fL (80.0-97.0); Mean Platelet Volume 9.9 fL (9.5-12.2); Monocytes % (A) 9.1 %; NRBC Per 100 WBC 0 /100 WBCS (0.0-0.0); Neutrophils # (A) 10.27 X 10*3/uL (1.80-7.70); Neutrophils % (A) 72.2 %; Platelet Count 312 X 10*3/uL (140-440); RDW 12.5 % (11.5-14.5); WBC 14.24 X 10*3/uL (4.50-10.00)
[2022-11-29 11:25] LABS: African American GFR (CKD) 119.7 (60.0-200.0); Anion Gap 9.5 mmol/L (10.00-18.00); BUN/Creat Ratio 17.43 Ratio (12.00-20.00); Blood Urea Nitrogen 9.6 mg/dL (9.0-27.0); Calcium 8.6 mg/dL (8.7-10.3); Carbon Dioxide 29.6 mmol/L (20.0-27.5); Non-African American GFR(CKD) 103.3 (60.0-200.0); Potassium 3.2 mmol/L (3.5-5.5)
[2022-11-29] MEDS ORDERED: Potassium Replacement Protocol 1 EACH MISC MISCELLANE PRN (12:17)
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
[2022-11-29] MEDS: POTASSIUM CHLORIDE ER 20 MEQ TAB.ER PO SCH ×3 (14:08→17:49)
[2022-11-29 17:09] LABS: Glucose,Whole Blood 128 mg/dL (70-110)
[2022-11-29] MEDS ORDERED: DEXTROSE 50% SYRINGE 50 ML IVP PRN ×2 (17:46)
--- NOTE | 2022-11-29 18:00 | P.PN ---
Subjective Progress Note Date: 11/29/22 Hospital course: Patient is a very pleasant 57-year-old female with a past medical history of type II gzu-nnsmzin-pscpbfhtl diabetes mellitus, hypertension, obstructive sleep apnea, and hypothyroidism. she is currently admitted under orthospine surgery team and status post L3 through S1 decompression and fusion completed by Dr. Colvin on 11/28/22. Physical exam: Patient seen and fully evaluated at bedside this morning. Patient reports controlled postoperative pain and currently denies having any other complaints or needs at this time. Kay catheter was removed this morning and patient reports urinating without any difficulties. Vital signs reviewed and stable. General: Nontoxic, no distress and appears stated age. obese. Derm: Skin warm and dry, normal coloration for ethnicity. surgical dressings in place, clean, dry, and intact. Surgical drain in place with moderate amount of bloody drainage. Head: Atraumatic, normocephalic and symmetric. Eyes: EOMs intact, no lid lag, and anicteric sclera Mouth: no lip lesions, mucus membranes moist Cardiovascular: regular rate and rhythm with normal S1S2, systolic murmur, positive posterior tibial pulses bilaterally, and cap refill < 2 seconds. Lungs: Respirations even, regular, and unlabored on room air. Lungs CTA bilaterally, no rhonchi, no rales, no wheezing, and no accessory muscle usage. Abdominal: soft, nontender to palpation, no guarding, no appreciable organomegaly. Ext: ROM intact. No gross muscle atrophy, no edema, no contractures Neuro: Speech clear, face symmetrical and CN II-XII grossly intact with no noted focal neuro deficits Psych: Alert and oriented to person, place, time, and situation. Appropriate and pleasant affect. Assessment and Plan of Care: Status post L3-S1 decompression and fusion completed on 11/28/22 -DVT prophylaxis, pain management, wound/dressing/drain care, and PT/OT per primary admitting orthospine surgery team. -Patient currently with DVT prophylaxis via ROSALBA hose and SCDs Mild leukocytosis -WBCs 14.24, leukocytosis likely reactive secondary to surgical procedure. -Order placed for repeat morning CBC to follow up and monitor for improvement. Mild postoperative blood loss anemia, expected finding and stable with hemoglobin of 10.0. -Order placed for repeat morning CBC for close monitoring as postsurgical drain with moderate amount of bloody drainage. Hypokalemia -Potassium was 3.2, replaced with a total of 60 mEq of K Dur. -Order placed for repeat morning BMP for close monitoring and resolution of hypokalemia. Type II jdw-[id number] diabetes mellitus -Hold oral hypoglycemic medications and place patient on glycemic protocol with NovoLog sliding scale. Hypertension -Monitor vital signs and continue daily medication regimen with amlodipine 5 mg daily and lisinopril 20 mg daily. Hypothyroidism -Continue levothyroxine 50 g daily. Thank you for allowing us to participate in the care of this pleasant patient. Do not hesitate to contact us with questions. Someone can be reached from the [facility] hospitalist group all hours of the day at [phone] or via [employer]. Patient was seen independently by Nurse Pracitioner. This document was prepared using [employer] dictation software. Please allow for errors in bioanalyst, while rare they do occur. Won Marquez NP rendered care for this patient independently, reviewed the findings and plan as documented in the note above. I did not physically speak with or examine the patient on this gloria Objective - Vital Signs Vital signs: Vital Signs Temp 98.6 F 11/29/22 02:00 Pulse 97 11/29/22 02:00 Resp 20 11/28/22 20:00 BP 160/75 11/29/22 02:00 Pulse Ox 90 L 11/29/22 02:00 FiO2 Intake & Output 11/28/22 11/29/22 11/29/22 18:59 06:59 18:59 Intake Total 3552 Output Total 1075 1300 Balance 2477 -1300 Weight 97.522 kg Intake: IV 3552 Output: Drainage 100 Back 100 Urine 725 1200 Estimated Blood Loss 350 Other: Voiding Method Indwelling Catheter - Labs CBC & Chem 7: 11/30/22 07:01 11/30/22 07:01 Labs: Abnormal Lab Results - Last 24 Hours (Table) 11/28/22 11/29/22 Range/Units 09:41 06:01 Potassium 3.2 L (3.5-5.1) mmol/L POC Glucose (mg/dL) 111 H (70-110) mg/dL
[2022-11-29 20:46] LABS: Glucose,Whole Blood 185 mg/dL (70-110)
[2022-11-29] MEDS: ATORVASTATIN 20 MG TAB PO SCH (21:11)
[2022-11-30 06:09] LABS: Glucose,Whole Blood 121 mg/dL (70-110)
[2022-11-30] MEDS: INSULIN ASPART (NovoLOG) 100 UNIT/ML VIAL SQ SCH ×4 (06:51→21:29)
[2022-11-30] MEDS: LEVOTHYROXINE 50 MCG TAB PO SCH (06:57)
[2022-11-30] MEDS: PANTOPRAZOLE 40 MG TABLET PO SCH (06:57)
[2022-11-30] MEDS: ACETAMINOPHEN TAB 325 MG TAB PO SCH ×4 (06:57→23:33)
[2022-11-30] MEDS: HYDROcodone/APAP 10-325MG 1 EACH TAB PO PRN ×4 (07:03→20:33)
[2022-11-30 07:23] LABS: Basophils # (A) 0.1 k/uL (0-0.2); Basophils % (A) 0 %; Eosinophils # (A) 0.1 k/uL (0-0.7); Eosinophils % (A) 1 %; HCT 32.7 % (34.0-46.0); Lymphocytes # (A) 1.7 k/uL (1.0-4.8); Lymphocytes % (A) 14 %; MCH 31.1 pg (25.0-35.0); MCHC 33.6 g/dL (31.0-37.0); MCV 92.5 fL (80.0-100.0); Mean Platelet Volume 7.3; Monocytes # (A) 0.8 k/uL (0-1.0); Monocytes % (A) 7 %; Neutrophils # (A) 9.6 k/uL (1.3-7.7); Neutrophils % (A) 77 %; Platelet Count 293 k/uL (150-450); RBC 3.53 m/uL (3.80-5.40); RDW 12.7 % (11.5-15.5); WBC 12.5 k/uL (3.8-10.6)
[2022-11-30 07:35] LABS: African American GFR (CKD) >90 (>60 ml/min/1.73 sqM); Anion Gap 7 mmol/L; Blood Urea Nitrogen 7 mg/dL (7-17); Calcium 8.6 mg/dL (8.4-10.2); Carbon Dioxide 26 mmol/L (22-30); Chloride 102 mmol/L (98-107); Glucose 141 mg/dL (74-99); Non-African American GFR(CKD) >90 (>60 ml/min/1.73 sqM); Sodium 135 mmol/L (137-145)
[2022-11-30 07:42] LABS: Potassium 4.3 mmol/L (3.5-5.1)
--- NOTE | 2022-11-30 07:59 | P.PN ---
Subjective Progress Note Date: 11/30/22 Principal diagnosis: 1. 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 Status post L5-S1 posterior lateral interbody fusion with likely pseudoarthrosis 3. Lower extremity weakness with rotator extremity radiculopathy related to spondylosis and severe stenosis 4. Neurogenic claudication 5. Lower extremity paresthesias 6. Low back pain Patient seen and examined this morning. Patient is sitting up at bedside. Patient reports her pain is managed on current regimen. Her spouse brought in her LSO brace, this is at bedside. Patient states she has been up and ambulatory with SBA and walker. She states she is tolerating activity well. Surgical incision is clean dry and intact with Hemovac present, approximately 175 mL output overnight. Patient denies any numbness or tingling to the bilateral lower extremities. Kay cath has been removed and she is urinating without difficulty. Patient has not had a BM since procedure, she states she is passing gas. Patient has been afebrile, denies nausea/vomiting, or chest pain. Objective - Vital Signs Vital signs: Vital Signs Temp 99.6 F 11/30/22 01:17 Pulse 91 11/30/22 01:17 Resp 16 11/30/22 01:17 BP 153/83 11/30/22 01:17 Pulse Ox 95 11/30/22 01:17 FiO2 Intake & Output 11/29/22 11/30/22 11/30/22 18:59 06:59 18:59 Output Total 2215 252 Balance -2215 -252 Output: Drainage 290 250 Back 290 250 Urine 1925 2 Other: Voiding Method Toilet Toilet # Voids 4 - Exam Physical Examination General: The patient is awake and alert, in no acute distress Skin: Skin is warm and dry with no obvious rashes or lesions. Surgical incision to the lumbar region, surgical dressing is clean dry and intact with Hemovac present, approximately 175 mL output overnight. Eye: Pupils are equal, round and reactive to light, extra-ocular movements are intact; there is normal conjunctiva bilaterally. Neck: The neck is supple, there is no tenderness and ROM intact. Cardiovascular: There is a regular rate and rhythm. No murmur, rub or gallop is appreciated. Respiratory: Lungs are clear to auscultation, respirations are non-labored, breath sounds are equal. Gastrointestinal: Soft, non-distended, non-tender abdomen. Back: There is no tenderness to palpation in the midline, paralumbar, parathoracic or buttocks region. There is no obvious deformity . Musculoskeletal: ROM limited secondary to pain and stiffness from surgical proc edure. Muscle strength in all major muscle groups of bilateral upper extremities 5/5, bilateral lower extremities 4+/5. Neurological: CN 2-12 intact. There are no obvious motor or sensory deficits. Movement and coordination equal and intact. Sensory exam to light touch intact C5-T1 and intact from L2-S1. Reflexes 2/4 in bilateral upper and lower extremities. Negative Hoffmans, babinski, and clonus signs. Psychiatric: Cooperative, appropriate mood & affect, normal judgment. - Labs CBC & Chem 7: 11/30/22 07:01 11/30/22 07:01 Labs: Abnormal Lab Results - Last 24 Hours (Table) 11/29/22 11/29/22 11/29/22 Range/Units 06:25 06:25 17:07 WBC 14.24 H (4.50-10.00) X 10*3/uL RBC 3.30 L (4.10-5.20) X 10*6/uL Hgb 10.0 L (12.0-15.0) g/dL Hct 29.4 L (37.2-46.3) % Immature Gran # 0.06 H (0.00-0.04) X 10*3/uL Neutrophils # 10.27 H (1.80-7.70) X 10*3/uL Monocytes # 1.30 H (0.20-1.00) X 10*3/uL Eosinophils # 0.02 L (0.04-0.35) X 10*3/uL Sodium (137-145) mmol/L Potassium 3.2 L (3.5-5.5) mmol/L Carbon Dioxide 29.6 H (20.0-27.5) mmol/L Anion Gap 9.50 L (10.00-18.00) mmol/L Creatinine (0.52-1.04) mg/dL Glucose 123 H (70-110) mg/dL POC Glucose (mg/dL) 128 H (70-110) mg/dL Calcium 8.6 L (8.7-10.3) mg/dL 11/29/22 11/30/22 11/30/22 Range/Units 20:45 06:08 07:01 WBC 12.5 H (4.50-10.00) X 10*3/uL RBC 3.53 L (4.10-5.20) X 10*6/uL Hgb 11.0 L (12.0-15.0) g/dL Hct 32.7 L (37.2-46.3) % Immature Gran # (0.00-0.04) X 10*3/uL Neutrophils # 9.6 H (1.80-7.70) X 10*3/uL Monocytes # (0.20-1.00) X 10*3/uL Eosinophils # (0.04-0.35) X 10*3/uL Sodium (137-145) mmol/L Potassium (3.5-5.5) mmol/L Carbon Dioxide (20.0-27.5) mmol/L Anion Gap (10.00-18.00) mmol/L Creatinine (0.52-1.04) mg/dL Glucose (70-110) mg/dL POC Glucose (mg/dL) 185 H 121 H (70-110) mg/dL Calcium (8.7-10.3) mg/dL 11/30/22 Range/Units 07:01 WBC (4.50-10.00) X 10*3/uL RBC (4.10-5.20) X 10*6/uL Hgb (12.0-15.0) g/dL Hct (37.2-46.3) % Immature Gran # (0.00-0.04) X 10*3/uL Neutrophils # (1.80-7.70) X 10*3/uL Monocytes # (0.20-1.00) X 10*3/uL Eosinophils # (0.04-0.35) X 10*3/uL Sodium 135 L (137-145) mmol/L Potassium (3.5-5.5) mmol/L Carbon Dioxide (20.0-27.5) mmol/L Anion Gap (10.00-18.00) mmol/L Creatinine 0.36 L (0.52-1.04) mg/dL Glucose 141 H (70-110) mg/dL POC Glucose (mg/dL) (70-110) mg/dL Calcium (8.7-10.3) mg/dL Assessment and Plan Assessment: Postop day 2: Revision L3-S1 decompression and fusion 1. 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 Status post L5-S1 posterior lateral interbody fusion with likely pseudoarthrosis 3. Lower extremity weakness with rotator extremity radiculopathy related to spondylosis and severe stenosis 4. Neurogenic claudication 5. Lower extremity paresthesias 6. Low back pain Plan: -Appreciate application development consultant and team management. -Activity: Ambulate QID, OOB all meals, up and about, limit lifting bending twisting to less than 5 lbs. Use walker or cane if needed for stability. -Daily PT/OT, increase ambulation strength and balance. -Brace when up and about, not needed in bed or chair -Pain control: Adequate at this time -Meds: reviewed -GI ppx: senna, Miralax -DVT PPX: Heparin -Hygiene: Shower today. Maintain dressing clean and dry. Meticulous cleaning after BMs away from the incision site. -Drains: Maintain for now. -Encourage IS 10x/hr -Dispo: Anticipate discharge home in the next 24hrs with homecare *I reviewed and discussed this case with my attending Dr. Colvin, whom has reviewed this chart and films and is in agreement with assessment and plan of care as outlined above. I have personally seen and examined the patient, performed the documentation and the assessment and plan as written. Number of minutes spent on the visit: 20m.
[2022-11-30] MEDS: GABAPENTIN 300 MG CAP PO SCH ×3 (08:15→21:30)
[2022-11-30] MEDS: amLODIPine 5 MG TAB PO SCH (08:15)
[2022-11-30] MEDS: lisinopriL 20 MG TAB PO SCH (08:16)
[2022-11-30] MEDS: CYCLOBENZAPRINE 5 MG TAB PO SCH ×3 (08:16→21:30)
[2022-11-30] MEDS: OXcarbazepine 300 MG TAB PO SCH ×2 (08:16→21:30)
[2022-11-30] MEDS: DULoxetine HCL 60 MG CAPSULE.DR PO SCH (08:16)
[2022-11-30] MEDS: SYMBICORT 80-4.5 MCG INHALER INHALATION SCH ×2 (09:37→20:22)
[2022-11-30 10:24] LABS: Albumin 3.7 g/dL (3.8-4.9); Albumin/Globulin Ratio 1.98 (1.60-3.17); Globulin 1.9 g/dL (1.6-3.3); Magnesium 1.6 mg/dL (1.5-2.4); Total Bilirubin 0.2 mg/dL (0.30-1.20); Total Protein 5.5 g/dL (6.2-8.2)
[2022-11-30 11:43] LABS: Glucose,Whole Blood 155 mg/dL (70-110)
--- NOTE | 2022-11-30 13:41 | P.PN ---
Subjective Progress Note Date: 11/30/22 Hospital course: Patient is a very pleasant 57-year-old female with a past medical history of type II [id number] diabetes mellitus, hypertension, obstructive sleep apnea, and hypothyroidism. she is currently admitted under orthospine surgery team and status post L3 through S1 decompression and fusion completed by Dr. Colvin on 11/28/22. Physical exam: Patient seen and fully evaluated at bedside this morning. Patient reports controlled postoperative pain and currently denies having any other complaints or needs at this time. Patient postoperative day 2 and appears to be doing well. Once cleared by primary admitting orthopedic surgery team, patient is medically optimized and cleared for discharge. Vital signs reviewed and stable. General: Nontoxic, no distress and appears stated age. obese. Derm: Skin warm and dry, normal coloration for ethnicity. surgical dressings in place, clean, dry, and intact. Surgical drain in place with moderate amount of bloody drainage. Head: Atraumatic, normocephalic and symmetric. Eyes: EOMs intact, no lid lag, and anicteric sclera Mouth: no lip lesions, mucus membranes moist Cardiovascular: regular rate and rhythm with normal S1S2, systolic murmur, positive posterior tibial pulses bilaterally, and cap refill < 2 seconds. Lungs: Respirations even, regular, and unlabored on room air. Lungs CTA bilaterally, no rhonchi, no rales, no wheezing, and no accessory muscle usage. Abdominal: soft, nontender to palpation, no guarding, no appreciable organomegaly. Ext: ROM intact. No gross muscle atrophy, no edema, no contractures Neuro: Speech clear, face symmetrical and CN II-XII grossly intact with no noted focal neuro deficits Psych: Alert and oriented to person, place, time, and situation. Appropriate and pleasant affect. Assessment and Plan of Care: Status post L3-S1 decompression and fusion completed on 11/28/22 -DVT prophylaxis, pain management, wound/dressing/drain care, and PT/OT per primary admitting orthospine surgery team. -Patient currently with DVT prophylaxis via ROSALBA hose and SCDs Mild leukocytosis, reactive and improving. -Reviewed morning labs. CBC showing improvement of WBC count from previous 14.24 down to 12.5 this morning. WBCs 14.24, leukocytosis likely reactive secondary to surgical procedure. -Order placed for repeat morning CBC to follow up and monitor for improvement. Mild postoperative blood loss anemia, expected finding and stable with hemoglobin of 11.0. -Morning labs reviewed. CBC revealing a stable hemoglobin of 11.0. No need for intervention and no need for further testing at this time. Hypokalemia, resolved -Reviewed morning labs. BMP showing resolution of hypokalemia with potassium of 4.3. Type II [id number] diabetes mellitus -Hold oral hypoglycemic medications and place patient on glycemic protocol with NovoLog sliding scale. Blood glucose levels stable over the past 24 hours ranging from 111 285. -Hemoglobin A1c 5.6%. Hypertension -Monitor vital signs and continue daily medication regimen with furosemide 40 mg daily, amlodipine 5 mg daily and lisinopril 20 mg daily. Hypothyroidism -Continue levothyroxine 50 g daily. Thank you for allowing us to participate in the care of this pleasant patient. Do not hesitate to contact us with questions. Someone can be reached from the [facility] all hours of the day at [phone] or via [employer]. Patient was seen independently by Nurse Pracitioner. This document was prepared using [employer] dictation software. Please allow for errors in tonsorial artist, while rare they do occur. Won Marquez NP rendered care for this patient independently, reviewed the findings and plan as documented in the note above. I did not physically speak with or examine the patient on this gloria Objective - Vital Signs Vital signs: Vital Signs Temp 99.6 F 11/30/22 01:17 Pulse 91 11/30/22 01:17 Resp 16 11/30/22 01:17 BP 153/83 11/30/22 01:17 Pulse Ox 95 11/30/22 01:17 FiO2 Intake & Output 11/29/22 11/30/22 11/30/22 18:59 06:59 18:59 Output Total 2215 252 Balance -2215 -252 Output: Drainage 290 250 Back 290 250 Urine 1925 2 Other: Voiding Method Toilet Toilet # Voids 4 - Labs CBC & Chem 7: 11/30/22 07:01 11/30/22 07:01 Labs: Abnormal Lab Results - Last 24 Hours (Table) 11/29/22 11/29/22 11/29/22 Range/Units 06:25 06:25 17:07 WBC 14.24 H (4.50-10.00) X 10*3/uL RBC 3.30 L (4.10-5.20) X 10*6/uL Hgb 10.0 L (12.0-15.0) g/dL Hct 29.4 L (37.2-46.3) % Immature Gran # 0.06 H (0.00-0.04) X 10*3/uL Neutrophils # 10.27 H (1.80-7.70) X 10*3/uL Monocytes # 1.30 H (0.20-1.00) X 10*3/uL Eosinophils # 0.02 L (0.04-0.35) X 10*3/uL Sodium (137-145) mmol/L Potassium 3.2 L (3.5-5.5) mmol/L Carbon Dioxide 29.6 H (20.0-27.5) mmol/L Anion Gap 9.50 L (10.00-18.00) mmol/L Creatinine (0.52-1.04) mg/dL Glucose 123 H (70-110) mg/dL POC Glucose (mg/dL) 128 H (70-110) mg/dL Calcium 8.6 L (8.7-10.3) mg/dL 11/29/22 11/30/22 11/30/22 Range/Units 20:45 06:08 07:01 WBC 12.5 H (4.50-10.00) X 10*3/uL RBC 3.53 L (4.10-5.20) X 10*6/uL Hgb 11.0 L (12.0-15.0) g/dL Hct 32.7 L (37.2-46.3) % Immature Gran # (0.00-0.04) X 10*3/uL Neutrophils # 9.6 H (1.80-7.70) X 10*3/uL Monocytes # (0.20-1.00) X 10*3/uL Eosinophils # (0.04-0.35) X 10*3/uL Sodium (137-145) mmol/L Potassium (3.5-5.5) mmol/L Carbon Dioxide (20.0-27.5) mmol/L Anion Gap (10.00-18.00) mmol/L Creatinine (0.52-1.04) mg/dL Glucose (70-110) mg/dL POC Glucose (mg/dL) 185 H 121 H (70-110) mg/dL Calcium (8.7-10.3) mg/dL 11/30/22 Range/Units 07:01 WBC (4.50-10.00) X 10*3/uL RBC (4.10-5.20) X 10*6/uL Hgb (12.0-15.0) g/dL Hct (37.2-46.3) % Immature Gran # (0.00-0.04) X 10*3/uL Neutrophils # (1.80-7.70) X 10*3/uL Monocytes # (0.20-1.00) X 10*3/uL Eosinophils # (0.04-0.35) X 10*3/uL Sodium 135 L (137-145) mmol/L Potassium (3.5-5.5) mmol/L Carbon Dioxide (20.0-27.5) mmol/L Anion Gap (10.00-18.00) mmol/L Creatinine 0.36 L (0.52-1.04) mg/dL Glucose 141 H (70-110) mg/dL POC Glucose (mg/dL) (70-110) mg/dL Calcium (8.7-10.3) mg/dL
[2022-11-30] MEDS: FUROSEMIDE 40 MG TAB PO SCH (13:42)
[2022-11-30] MEDS: HYDROmorphone 0.5 MG/0.5 ML SYRINGE IVP PRN (13:47)
[2022-11-30 16:42] LABS: Glucose,Whole Blood 102 mg/dL (70-110)
[2022-11-30] MEDS: LACTATED RINGERS 1,000 ML IV SCH (20:37)
[2022-11-30 21:21] LABS: Glucose,Whole Blood 153 mg/dL (70-110)
[2022-11-30] MEDS: ATORVASTATIN 20 MG TAB PO SCH (21:29)
[2022-12-01] MEDS: ACETAMINOPHEN TAB 325 MG TAB PO SCH ×4 (05:27→23:27)
[2022-12-01] MEDS: LEVOTHYROXINE 50 MCG TAB PO SCH (05:33)
[2022-12-01] MEDS: HYDROcodone/APAP 10-325MG 1 EACH TAB PO PRN ×3 (05:34→21:04)
[2022-12-01 06:18] LABS: Glucose,Whole Blood 130 mg/dL (70-110)
--- NOTE | 2022-12-01 07:34 | P.PN ---
Subjective Progress Note Date: 12/01/22 Principal diagnosis: 1. 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 Status post L5-S1 posterior lateral interbody fusion with likely pseudoarthrosis 3. Lower extremity weakness with rotator extremity radiculopathy related to spondylosis and severe stenosis 4. Neurogenic claudication 5. Lower extremity paresthesias 6. Low back pain Patient seen and examined this morning. Patient is sitting up in chair with LSO brace present. Patient states she has been up and ambulatory with SBA and walker. She states she is tolerating activity well. Surgical incision is clean dry and intact with Hemovac present, approximately 150 mL output overnight. Compression taken of drain, leave to gravity at this time. Patient denies any numbness or tingling to the bilateral lower extremities. Patient is wanting to go home today, discussed with her about the drain output, we will reassess this afternoon. Patient has been afebrile, denies nausea/vomiting, or chest pain. Objective - Vital Signs Vital signs: Vital Signs Temp 98.1 F 12/01/22 01:32 Pulse 81 12/01/22 01:32 Resp 18 12/01/22 01:32 BP 149/71 12/01/22 01:32 Pulse Ox 97 12/01/22 01:32 FiO2 Intake & Output 11/30/22 12/01/22 12/01/22 18:59 06:59 18:59 Intake Total 118 440 Output Total 350 315 Balance -232 125 Intake: Oral 118 440 Output: Drainage 350 315 Back 350 315 Other: Voiding Method Toilet Toilet # Voids 6 3 - Exam Physical Examination General: The patient is awake and alert, in no acute distress Skin: Skin is warm and dry with no obvious rashes or lesions. Surgical incision to the lumbar region, surgical dressing is clean dry and intact with Hemovac present, approximately 150 mL output overnight. Compression released from drain. Eye: Pupils are equal, round and reactive to light, extra-ocular movements are intact; there is normal conjunctiva bilaterally. Neck: The neck is supple, there is no tenderness and ROM intact. Cardiovascular: There is a regular rate and rhythm. No murmur, rub or gallop is appreciated. Respiratory: Lungs are clear to auscultation, respirations are non-labored, breath sounds are equal. Gastrointestinal: Soft, non-distended, non-tender abdomen. Back: There is no tenderness to palpation in the midline, paralumbar, parathoracic or buttocks region. There is no obvious deformity . Musculoskeletal: ROM limited secondary to pain and stiffness from surgical procedure. Muscle strength in all major muscle groups of bilateral upper extremities 5/5, bilateral lower extremities 4+/5. Neurological: CN 2-12 intact. There are no obvious motor or sensory deficits. Movement and coordination equal and intact. Sensory exam to light touch intact C5-T1 and intact from L2-S1. Reflexes 2/4 in bilateral upper and lower extremities. Negative Hoffmans, babinski, and clonus signs. Psychiatric: Cooperative, appropriate mood & affect, normal judgment. - Labs CBC & Chem 7: 11/30/22 07:01 11/30/22 07:01 Labs: Abnormal Lab Results - Last 24 Hours (Table) 11/29/22 11/30/22 11/30/22 Range/Units 06:25 07:01 11:41 Sodium 135 L (137-145) mmol/L Creatinine 0.36 L (0.52-1.04) mg/dL Glucose 141 H (74-99) mg/dL POC Glucose (mg/dL) 155 H (70-110) mg/dL Total Bilirubin 0.20 L (0.30-1.20) mg/dL Total Protein 5.5 L (6.2-8.2) g/dL Albumin 3.7 L (3.8-4.9) g/dL 11/30/22 12/01/22 Range/Units 21:19 06:13 Sodium (137-145) mmol/L Creatinine (0.52-1.04) mg/dL Glucose (74-99) mg/dL POC Glucose (mg/dL) 153 H 130 H (70-110) mg/dL Total Bilirubin (0.30-1.20) mg/dL Total Protein (6.2-8.2) g/dL Albumin (3.8-4.9) g/dL Assessment and Plan Assessment: Postop day 3: Revision L3-S1 decompression and fusion 1. 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 Status post L5-S1 posterior lateral interbody fusion with likely pseudoarthrosis 3. Lower extremity weakness with rotator extremity radiculopathy related to spondylosis and severe stenosis 4. Neurogenic claudication 5. Lower extremity paresthesias 6. Low back pain Plan: -Appreciate financial consultant and team management. -Activity: Ambulate QID, OOB all meals, up and about, limit lifting bending twisting to less than 5 lbs. Use walker or cane if needed for stability. -Daily PT/OT, increase ambulation strength and balance. -Brace when up and about, not needed in bed or chair -Pain control: Adequate at this time -Meds: reviewed -GI ppx: senna, Miralax -DVT PPX: Heparin -Hygiene: Shower today. Maintain dressing clean and dry. Meticulous cleaning after BMs away from the incision site. -Drains: Maintain for now. -Encourage IS 10x/hr -Dispo: Anticipate discharge home with homecare *I reviewed and discussed this case with my attending Dr. Colvin, whom has reviewed this chart and films and is in agreement with assessment and plan of care as outlined above. I have personally seen and examined the patient, performed the documentation and the assessment and plan as written. Number of minutes spent on the visit: 20m.
[2022-12-01] MEDS: INSULIN ASPART (NovoLOG) 100 UNIT/ML VIAL SQ SCH ×4 (07:44→21:05)
[2022-12-01] MEDS: SYMBICORT 80-4.5 MCG INHALER INHALATION SCH ×2 (09:20→19:47)
[2022-12-01] MEDS: lisinopriL 20 MG TAB PO SCH (09:39)
[2022-12-01] MEDS: PANTOPRAZOLE 40 MG TABLET PO SCH (09:39)
[2022-12-01] MEDS: GABAPENTIN 300 MG CAP PO SCH ×3 (09:39→21:05)
[2022-12-01] MEDS: amLODIPine 5 MG TAB PO SCH (09:39)
[2022-12-01] MEDS: CYCLOBENZAPRINE 5 MG TAB PO SCH ×3 (09:39→21:05)
[2022-12-01] MEDS: OXcarbazepine 300 MG TAB PO SCH ×2 (09:39→21:05)
[2022-12-01] MEDS: DULoxetine HCL 60 MG CAPSULE.DR PO SCH (09:39)
[2022-12-01] MEDS: FUROSEMIDE 40 MG TAB PO SCH (09:39)
[2022-12-01] MEDS: LACTATED RINGERS 1,000 ML IV SCH (09:42)
[2022-12-01 10:59] LABS: Glucose,Whole Blood 132 mg/dL (70-110)
--- NOTE | 2022-12-01 11:38 | P.PN ---
Subjective Progress Note Date: 12/01/22 No new complaints. Patient would really like to go home today. She is up and ambulating without assistance. Still has drain in place. Gen: awake, alert HEENT: normocephalic, atraumatic, good hearing acuity, moist mucous membranes Resp: good air exchange, breathing comfortably with no accessory muscle use CVS: good distal perfusion x 4, GI: soft, NTTP, ND : no SPT, no CVAT, martinez catheter not present MSK: no pitting edema, no clubbing Neuro: non-focal, moving all extremities Psych: cooperative, euthymic mood Assessment/plan: Status post L3-S1 decompression and fusion completed on 11/28/22 -DVT prophylaxis, pain management, wound/dressing/drain care, and PT/OT per primary admitting orthospine surgery team. -Patient currently with DVT prophylaxis via ROSALBA hose and SCDs Mild leukocytosis, reactive and improving. -Reviewed morning labs. CBC showing improvement of WBC count from previous 14 .24 down to 12.5 this morning. WBCs 14.24, leukocytosis likely reactive secondary to surgical procedure. -Order placed for repeat morning CBC to follow up and monitor for improvement. Mild postoperative blood loss anemia, expected finding and stable with hemoglobin of 11.0. -Morning labs reviewed. CBC revealing a stable hemoglobin of 11.0. No need for intervention and no need for further testing at this time. Hypokalemia, resolved -Reviewed morning labs. BMP showing resolution of hypokalemia with potassium of 4.3. Type II [id number] diabetes mellitus -Hold oral hypoglycemic medications and place patient on glycemic protocol with NovoLog sliding scale. Blood glucose levels stable over the past 24 hours ranging from 111 285. -Hemoglobin A1c 5.6%. Hypertension -Monitor vital signs and continue daily medication regimen with furosemide 40 mg daily, amlodipine 5 mg daily and lisinopril 20 mg daily. Hypothyroidism -Continue levothyroxine 50 g daily. Patient is medically stable for discharge. Medication reconciliation has been addressed from our perspective. Objective - Vital Signs Vital signs: Vital Signs Temp 98.1 F 12/01/22 07:29 Pulse 81 12/01/22 08:30 Resp 17 12/01/22 08:30 BP 150/88 12/01/22 07:29 Pulse Ox 95 12/01/22 09:21 FiO2 Intake & Output 11/30/22 12/01/22 12/01/22 18:59 06:59 18:59 Intake Total 118 440 Output Total 350 315 150 Balance -232 125 -150 Intake: Oral 118 440 Output: Drainage 350 315 150 Back 350 315 150 Other: Voiding Method Toilet Toilet Toilet # Voids 6 3 - Labs CBC & Chem 7: 11/30/22 07:01 11/30/22 07:01 Labs: Abnormal Lab Results - Last 24 Hours (Table) 11/30/22 11/30/22 12/01/22 Range/Units 11:41 21:19 06:13 POC Glucose (mg/dL) 155 H 153 H 130 H (70-110) mg/dL 12/01/22 Range/Units 10:57 POC Glucose (mg/dL) 132 H (70-110) mg/dL
[2022-12-01 15:55] LABS: Glucose,Whole Blood 122 mg/dL (70-110)
[2022-12-01 21:05] LABS: Glucose,Whole Blood 98 mg/dL (70-110)
[2022-12-01] MEDS: ATORVASTATIN 20 MG TAB PO SCH (21:05)
[2022-12-02] MEDS: HYDROcodone/APAP 10-325MG 1 EACH TAB PO PRN ×2 (03:49→08:36)
[2022-12-02 06:10] LABS: Glucose,Whole Blood 114 mg/dL (70-110)
[2022-12-02] MEDS: INSULIN ASPART (NovoLOG) 100 UNIT/ML VIAL SQ SCH (06:32)
[2022-12-02] MEDS: LACTATED RINGERS 1,000 ML IV SCH (06:32)
[2022-12-02] MEDS: ACETAMINOPHEN TAB 325 MG TAB PO SCH (06:36)
[2022-12-02] MEDS: PANTOPRAZOLE 40 MG TABLET PO SCH (06:37)
[2022-12-02] MEDS: LEVOTHYROXINE 50 MCG TAB PO SCH (06:37)
[2022-12-02 07:46] VITALS: BP 145/70; PULSE 78; RESP 18; TEMP 99
[2022-12-02] MEDS: SYMBICORT 80-4.5 MCG INHALER INHALATION SCH (08:03)
[2022-12-02] MEDS: CYCLOBENZAPRINE 5 MG TAB PO SCH (08:33)
[2022-12-02] MEDS: amLODIPine 5 MG TAB PO SCH (08:33)
[2022-12-02] MEDS: OXcarbazepine 300 MG TAB PO SCH (08:34)
[2022-12-02] MEDS: GABAPENTIN 300 MG CAP PO SCH (08:34)
[2022-12-02] MEDS: DULoxetine HCL 60 MG CAPSULE.DR PO SCH (08:34)
[2022-12-02] MEDS: FUROSEMIDE 40 MG TAB PO SCH (08:34)
[2022-12-02] MEDS: lisinopriL 20 MG TAB PO SCH (08:34)
--- NOTE | 2022-12-02 09:12 | P.DS ---
Providers Date of admission: 11/28/22 08:39 Expected date of discharge: 12/02/22 Attending physician: David Colvin DO Consults: 11/28/22 13:54 Consult Physician Routine Consulting Provider: Sinai Contreras Consult Reason/Comments: medical management s/p s/p revision L3-S1 decompression fusion Do you want consulting provider notified?: Yes Primary care physician: Win Kirkland Hospital Course: Date of admission: 11/28/2022 Date of discharge: 12/02/2022 Admission diagnosis: 1. 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 Status post L5-S1 posterior lateral interbody fusion with likely pseudoarthrosis 3. Lower extremity weakness with rotator extremity radiculopathy related to spondylosis and severe stenosis 4. Neurogenic claudication 5. Lower extremity paresthesias 6. Low back pain Discharge diagnosis: Same Attending physician: Dr. Colvin Surgical procedures: Procedure(s) Performed: 1. L4-5 intradiscal 3 column osteotomy for deformity correction 2. L3-4 and L4-5 posteriolateral and interbody fusion 3. Revision posteriolateral fusion L5-S1 Brief history: Patient is a 57-year-old female with a history of adjacent segment disease L3-L4, L4-L5 was is here spondylosis and stenosis; neurogenic claudication; lower extremity paresthesias; low back pain. At this point patie nt has failed conservative treatment measures and has opted to proceed with a elective L4-L5 intradiscal 3, osteotomy for deformity correction; L3-4 and L4-5 posterior lateral interbody fusion; revision posterior lateral fusion L5-S1. Hospital course: Details of patient's surgery can be found in operative report. Patient tolerated the procedure well and was subsequently transported to orthopedic floor. Patient's orthopeidc and medical care was provided daily. Patient had daily laboratory tests performed for evaluation of overall blood counts. Patient had daily physical therapy to include strengthening range of motion as well as education with walker ambulation. Patient was noted to have a relatively uneventful postoperative course. Patient reported satisfactory pain control with oral pain medications by postoperative day 4. Patient showed satisfactory progress with physical therapy. Patient moved steadily through the program and had no difficulty meeting the goals by postoperative day 4. Given patient's otherwise satisfactory course and having met physical therapy goals, plan is to discharge patient home with health services on postoperative day 4. Discharge condition/disposition: Patient will be discharged home with health services in stable condition. Discharge medications: Instructions are given on resumption of patient's normal daily medications per primary care recommendation, in addition patient will be prescribed oxycodone; Tylenol; Duricef; senna; Flexeril. Spine Discharge and Recovery Instructions Date of Surgery: 11/28/2022 Diagnosis: 1. 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 Status post L5-S1 posterior lateral interbody fusion with likely pseudoarthrosis 3. Lower extremity weakness with rotator extremity radiculopathy related to spondylosis and severe stenosis 4. Neurogenic claudication 5. Lower extremity paresthesias 6. Low back pain Procedure(s) Performed: 1. L4-5 intradiscal 3 column osteotomy for deformity correction 2. L3-4 and L4-5 posteriolateral and interbody fusion 3. Revision posteriolateral fusion L5-S1 Medications: See medication list All medication refills should be obtained through your primary care doctor or your clinic spine surgeon. Please discuss prescription refills at your follow up appointment. Do not call the hospital for medication refills. Dressing: Leave your dressing in place for a total of 5 days post operatively. Then you may remove your dressing and leave open to air. Keep the area clean and if not able to keep area clean, then cover with sterile gauze and tape. Showering: You may shower 3 days after your procedure allowing soap and water to run over incision. Do not scrub. Do not soak. Blot dry. Follow up: Please confirm a follow up appointment with your surgeon 3 weeks post operatively. Please make an appointment to follow up with your PCP in 1-2 weeks after surgery for evaluation 3 phase, 3-week plan POST OP WEEKS 1-3 1. Lifting/carrying/pushing/pulling limited to less than 5 pounds. 2. Do not sit for longer than 15 minutes at one time. Get up and walk around. Prolonged sitting is NOT advised. If you lay down, see if you can tolerate laying down on you front (belly side) 3. Walk for periods of 15 minutes = 1 mile but no longer; do it multiple t imes times each day. 4. Ice your low back after activity. POST OP WEEKS 3-6 1. Lifting limited to less than 20 pounds. 2. Do not sit for longer than 30 minutes at a time. Frequently change positions. Use a sit-to stand workstation or take frequent breaks from sitting if you have returned to work. 3. Walk for 30 minutes each day. If possible, do these three or more times a day POST OP WEEKS 6+ At your 6-week appointment we will give you a physical therapy referral to focus on a core stabilization and strengthening program. You should also work on leg & buttock strengthening, hamstring & quadriceps stretching, and continue a low impact aerobic activity program such as swimming, walking, or riding a stationary bicycle. During the initial 6 weeks after your surgery, you are at the highest risk of re-injuring your spine. You should generally avoid BLTs (bending, lifting and twisting combination motions) and follow the above guidelines to reduce the chance of reinjury. You can anticipate post op appointments in our office at approximately 3 weeks and 6 weeks after your surgery. INCISION CARE: If your incision is not draining you do NOT need to cover it with a dressing. Keep your incision clean, dry and intact. In most cases, we apply skin glue, rafaela or sutures to the incision at the time of surgery. This will be like a crust or have the appearance of a scab and will fall off in time on its own. The stitches or rafaela need to be removed at 3 weeks post op appointment. You may begin to shower 3 days after surgery (this allows the glue to zabala well). However, please avoid scrubbing the incision site or peeling off any of the skin glue. This will ensure optimal healing of your incision. Also, during this time avoid soaking the incision area in water - this includes swimming pools, hot tubs or baths. No ointments, lotions or oils on the incision until your surgeon allows. Leave rafaela, sutures or glue in place. Neurological dysfunction that comes on suddenly can also be a sign of a stroke. Below some common symptoms of a stroke are listed: B - balance difficulty such as sudden onset walking or leaning to one side - NEW E - eye problem such as sudden double vision or trouble seeing on one side - NEW F - Facial weakness or numbness on one side - NEW A - Arm or leg weakness or numbness on one side - NEW S - Slurred speech or difficulty with word finding - NEW T - Time is BRAIN! Call 911 as soon as you recognize these symptoms Diet: Consume a regular diet rich in vegetables and lean protein such as chicken or fish. You should consume in a ratio of approximately 20% fats|40% carbohydrates|40%protein. Vegetables, sweet potatoes, brown rice or quinoa are examples of good carbohydrates. Chips, white bread, cookies and sweets/sugar are examples of bad carbohydrates. Limit your bad carbs, go wild with good carbs. 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 (1) Get Active. Physical activity can help people lose weight, control high blood pressure and cholesterol, feel emotionally better, and sleep better. (2) Control Cholesterol. Avoid a diet high in saturated fat, trans fat, & cholesterol. Limit whole milk & cream, ice cream, butter, egg yolks, processed meats (like sausage and hot dogs), and fatty meats. Choose healthy foods that are low in saturated fat, trans fat and cholesterol which include: Fruits and vegetables, fiber rich grain products (like whole grain pasta and brown rice), lean meat such as chicken, fish, nuts, seeds, and legumes. (3) Eat Better. Eat small portions. Shop at the grocery with a list and do not stray from it. Tips for a healthy diet include: Limit sodium intake to less than 1500mg daily, avoid prepackaged, processed, and fast foods, choose a diet rich in fruits, vegetables, and whole grain, high fiber foods, and limit saturated & cholesterol in your diet. (4) Manage Blood Pressure. If you have high blood pressure, you should have a cuff at home so that you can check your blood pressure regularly. Be sure you have a good cuff. An arm one is generally better than a wrist one. Bring the cuff to a doctor's appointment to validate that the measurements that your cuff are taking are accurate. Take your blood pressure twice daily when you are sitting down and relaxing. Record the numbers in a log and bring this log with you to your doctors' appointments. (5) Lose Weight if your BMI is above 25. A healthy BMI is between 19-25. To calculate Your BMI, you may use a Standard BMI Calculator on the NIH BMI website: <www.nhlbi.nih.gov/guidelines/obesity/BMI/bmicalc.htm>. Weigh oneself daily. If you are overweight, set a goal to lose weight. A pound a week loss if needed is a good target. (6) Reduce Blood Sugar. Limit foods and liquids with "added sugars." (Added sugars include sucrose, fructose, glucose, maltose, dextrose, high fructose corn syrup, corn syrup, concentrated fruit juice and honey). (7) Stop Smoking. If you smoke, quitting smoking is one of the best things that you can do for your health. Smoking increases your risk of heart attack, stroke, and peripheral vascular disease, which is a build-up of plaque in your arteries. Please discard all the cigarettes and lighters in your house. Have a plan for what you will do when you have the urge to smoke. Direct and second- hand smoke shortens your life as well as the lives of your family, friends and others around you. For your health and the health of those around you, please consider quitting! Proper Bending Body Mechanics: Maintain a wide stance with one foot slightly in front of the other. Keep your back straight. Bend utilizing the strength in your hips and knees. Do not bend at the waist. Maintain the lifted object at your waist-level close to your body. Avoid lifting weight that causes immediately pain or pain anywhere in the body afterwards. Smoking/Nicotine If there was ever one thing that you could do to increase your overall health, decrease your risk of cardiovascular problems by about 39% the second you make the choice, it is to STOP SMOKING. Your body's most instant gratification is the second you stop smoking. We have all heard the studies, read the articles but it is true, smoking is extremely bad for your overall health, and moreover it is detrimental to your bone health. Nicotine, IN ANY FORM, kills bone cells, prevents your body from healing fractures, and significantly prolongs healing after surgery. In spine surgery specifically, it increases your risk of not healing your bones to create a fusion and increases your risk of having a revision surgery due to this up to 60%. I know it is hard. I know it feels impossible. But there are ways. Take control of your life. We are here to help you through it. And when you are ready, ask us and we can direct you to help if you desire. Use the START Plan to Quit Smoking (please visit the Helpguide.org website listed below for more information): S = Set a quit date. Choose a date within the next 2 weeks, so you have enough time to prepare without losing your motivation to quit. If you mainly smoke at work, quit on the weekend, so you have a few days to adjust to the change. T = Tell family, friends, and co-workers that you plan to quit. Let your friends and family in on your plan to quit smoking and tell them you need their support and encouragement to stop. Look for a quit mariya who wants to stop smoking as well. You can help each other get through the rough times. A = Anticipate and plan for the challenges you'll face while quitting. Most people who begin smoking again do so within the first 3 months. You can help yourself make it through by preparing ahead for common challenges, such as nicotine withdrawal and cigarette cravings. R = Remove cigarettes and other tobacco products from your home, car, and work. Throw away all your cigarettes (no emergency pack!), lighters, ashtrays, and matches. Wash your clothes and freshen up anything that smells like smoke. Shampoo your car, clean your drapes and carpet, and steam your furniture. T = Talk to your doctor about getting help to quit. Your doctor can prescribe medication to help with withdrawal and suggest other alternatives. If you can't see a doctor, you can get many products over the counter at your local pharmacy or grocery store, including the nicotine patch, nicotine lozenges, and nicotine gum. Resources for Quitting Smoking: <https://www.[place].gov/documents/[facility]/Quit_Tobacco_Resources_for_patients_313 480_7.pdf> Supplementation: Take recommended dosages of Vitamin D and Calcium to help fortify your bones and help them to heal. See your health maintenance packet for dosages and recommended levels. DVT/VTE prophylaxis: You will be given compression stockings from the hospital. Wear these daily for the first two weeks after surgery. You may take them off at night. You may be prescribed a medication to help thin your blood. Take this as directed. If you are not prescribed this medication, early and frequent ambulation has been shown to be the best prophylaxis to deep vein thrombosis and sequelae related to this event. Assessment: 1. 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 Status post L5-S1 posterior lateral interbody fusion with likely pseudoarthrosis 3. Lower extremity weakness with rotator extremity radiculopathy related to spondylosis and severe stenosis 4. Neurogenic claudication 5. Lower extremity paresthesias 6. Low back pain Procedures: 1. L4-5 intradiscal 3 column osteotomy for deformity correctio 2. L3-4 and L4-5 posteriolateral and interbody fusion 3. Revision posteriolateral fusion L5-S1 Patient Condition at Discharge: Good Plan - Discharge Summary Discharge Rx Participant: Yes New Discharge Prescriptions: New cefaDROXiL [Duricef] 500 mg PO Q12HR 5 Days #10 cap oxyCODONE HCL/ACETAMINOPHEN [Percocet 5-325 mg] 1 tab PO Q4HR PRN #42 tab PRN Reason: Pain Sennosides/Docusate Sodium [Senna Plus 8.6-50 mg Tablet] 1 each PO DAILY PRN #20 tablet PRN Reason: Constipation Cyclobenzaprine [Flexeril] 5 mg PO TID #90 tablet Acetaminophen Tab [Tylenol] 650 mg PO Q6HR tab Continue [place]-3 Acid Ethyl Esters [Lovaza] 2 gm PO BID Ibuprofen [Motrin] 800 mg PO Q8HR PRN PRN Reason: Pain Albuterol Sulfate [Ventolin HFA] 1 - 2 puff INHALATION Q4HR PRN PRN Reason: Wheezing DULoxetine HCL [Cymbalta] 60 mg PO QAM Pantoprazole Sodium [Protonix] 40 mg PO QAM OXcarbazepine [Trileptal] 600 mg PO BID Multivitamin [Multivitamins Adult Gummies] 1 tab PO DAILY Cetirizine HCl [Zyrtec] 10 mg PO HS Levothyroxine Sodium [Levoxyl] 50 mcg PO QAM Fluticasone Propion/Salmeterol [Advair 250-50 Diskus] 1 puff INHALATION BID Hydrocodone/Acetaminophen [[place] 10-325] 1 tab PO BID PRN PRN Reason: Pain Furosemide [Lasix] 40 mg PO DAILY Rosuvastatin [Crestor] 10 mg PO HS ALPRAZolam [Xanax] 0.5 mg PO Q8HR PRN PRN Reason: Insomnia/Anxiety Dulaglutide [Trulicity] 0.75 mg SQ SA amLODIPine [Norvasc] 5 mg PO DAILY metFORMIN HCL [Glucophage] 500 mg PO BID lisinopriL [Zestril] 20 mg PO DAILY Cyclobenzaprine [Flexeril] 10 mg PO HS Gabapentin [Neurontin] 300 mg PO HS Discharge Medication List Ibuprofen [Motrin] 800 mg PO Q8HR PRN 02/26/14 [History] [place]-3 Acid Ethyl Esters [Lovaza] 2 gm PO BID 02/26/14 [History] Albuterol Sulfate [Ventolin HFA] 1 - 2 puff INHALATION Q4HR PRN 04/15/14 [History] DULoxetine HCL [Cymbalta] 60 mg PO QAM 11/03/15 [History] OXcarbazepine [Trileptal] 600 mg PO BID 11/03/15 [History] Pantoprazole Sodium [Protonix] 40 mg PO QAM 11/03/15 [History] Cetirizine HCl [Zyrtec] 10 mg PO HS 04/16/18 [History] Multivitamin [Multivitamins Adult Gummies] 1 tab PO DAILY 04/16/18 [History] Fluticasone Propion/Salmeterol [Advair 250-50 Diskus] 1 puff INHALATION BID 04/22/18 [History] Levothyroxine Sodium [Levoxyl] 50 mcg PO QAM 04/22/18 [History] Furosemide [Lasix] 40 mg PO DAILY 12/06/18 [History] Hydrocodone/Acetaminophen [[place] 10-325] 1 tab PO BID PRN 12/06/18 [History] Rosuvastatin [Crestor] 10 mg PO HS 12/06/18 [History] ALPRAZolam [Xanax] 0.5 mg PO Q8HR PRN 01/18/21 [History] Dulaglutide [Trulicity] 0.75 mg SQ SA 03/07/22 [History] metFORMIN HCL [Glucophage] 500 mg PO BID 03/07/22 [History] amLODIPine [Norvasc] 5 mg PO DAILY 09/13/22 [History] lisinopriL [Zestril] 20 mg PO DAILY 09/13/22 [History] Cyclobenzaprine [Flexeril] 10 mg PO HS 11/28/22 [History] Gabapentin [Neurontin] 300 mg PO HS 11/28/22 [History] Acetaminophen Tab [Tylenol] 650 mg PO Q6HR tab 12/01/22 [Rx] Cyclobenzaprine [Flexeril] 5 mg PO TID #90 tablet 12/01/22 [Rx] Sennosides/Docusate Sodium [Senna Plus 8.6-50 mg Tablet] 1 each PO DAILY PRN #20 tablet 12/01/22 [Rx] cefaDROXiL [Duricef] 500 mg PO Q12HR 5 Days #10 cap 12/01/22 [Rx] oxyCODONE HCL/ACETAMINOPHEN [Percocet 5-325 mg] 1 tab PO Q4HR PRN #42 tab 12/01/22 [Rx] Follow up Appointment(s)/Referral(s): [facility], [NON-STAFF] - ([facility] will call you to arrange a visit. ) David Colvin DO [Doctor of Osteopathic Medicine] - 2 Weeks Activity/Diet/Wound Care/Special Instructions: Spine Discharge and Recovery Instructions Date of Surgery: 11/28/2022 Diagnosis: Lumbar spondylosis with stenosis Procedure: Revision L3-S1 decompression and fusion Medications: See medication list All medication refills should be obtained through your primary care doctor or your clinic spine surgeon. Please discuss prescription refills at your follow up appointment. Do not call the hospital for medication refills. Dressing: Leave your dressing in place for a total of 5 days post operatively. Then you may remove your dressing and leave open to air. Keep the area clean and if not able to keep area clean, then cover with sterile gauze and tape. Showering: You may shower 3 days after your procedure allowing soap and water to run over incision. Do not scrub. Do not soak. Blot dry. Follow up: Please confirm a follow up appointment with your surgeon 3 weeks post operatively. Please make an appointment to follow up with your PCP in 1-2 weeks after surg fidelina for evaluation 3 phase, 3-week plan POST OP WEEKS 1-3 1. Lifting/carrying/pushing/pulling limited to less than 5 pounds. 2. Do not sit for longer than 15 minutes at one time. Get up and walk around. Prolonged sitting is NOT advised. If you lay down, see if you can tolerate laying down on you front (belly side) 3. Walk for periods of 15 minutes = 1 mile but no longer; do it multiple times times each day. 4. Ice your low back after activity. POST OP WEEKS 3-6 1. Lifting limited to less than 20 pounds. 2. Do not sit for longer than 30 minutes at a time. Frequently change positions. Use a sit-to stand workstation or take frequent breaks from sitting if you have returned to work. 3. Walk for 30 minutes each day. If possible, do these three or more times a day POST OP WEEKS 6+ At your 6-week appointment we will give you a physical therapy referral to focus on a core stabilization and strengthening program. You should also work on leg & buttock strengthening, hamstring & quadriceps stretching, and continue a low impact aerobic activity program such as swimming, walking, or riding a stationary bicycle. During the initial 6 weeks after your surgery, you are at the highest risk of re-injuring your spine. You should generally avoid BLTs (bending, lifting and twisting combination motions) and follow the above guidelines to reduce the chance of reinjury. You can anticipate post op appointments in our office at approximately 3 weeks and 6 weeks after your surgery. INCISION CARE: If your incision is not draining you do NOT need to cover it with a dressing. Keep your incision clean, dry and intact. In most cases, we apply skin glue, rafaela or sutures to the incision at the time of surgery. This will be like a crust or have the appearance of a scab and will fall off in time on its own. The stitches or rafaela need to be removed at 3 weeks post op appointment. You may begin to shower 3 days after surgery (this allows the glue to zabala well). However, please avoid scrubbing the incision site or peeling off any of the skin glue. This will ensure optimal healing of your incision. Also, during this time avoid soaking the incision area in water - this includes swimming pools, hot tubs or baths. No ointments, lotions or oils on the incision until your surgeon allows. Leave rafaela, sutures or glue in place. Neurological dysfunction that comes on suddenly can also be a sign of a stroke. Below some common symptoms of a stroke are listed: B - balance difficulty such as sudden onset walking or leaning to one side - NEW E - eye problem such as sudden double vision or trouble seeing on one side - NEW F - Facial weakness or numbness on one side - NEW A - Arm or leg weakness or numbness on one side - NEW S - Slurred speech or difficulty with word finding - NEW T - Time is BRAIN! Call 911 as soon as you recognize these symptoms Diet: Consume a regular diet rich in vegetables and lean protein such as chicken or fish. You should consume in a ratio of approximately 20% fats|40% carbohydrates|40%protein. Vegetables, sweet potatoes, brown rice or quinoa are examples of good carbohydrates. Chips, white bread, cookies and sweets/sugar are examples of bad carbohydrates. Limit your bad carbs, go wild with good carbs. 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 (1) Get Active. Physical activity can help people lose weight, control high blood pressure and cholesterol, feel emotionally better, and sleep better. (2) Control Cholesterol. Avoid a diet high in saturated fat, trans fat, & cholesterol. Limit whole milk & cream, ice cream, butter, egg yolks, processed meats (like sausage and hot dogs), and fatty meats. Choose healthy foods that are low in saturated fat, trans fat and cholesterol which include: Fruits and vegetables, fiber rich grain products (like whole grain pasta and brown rice), lean meat such as chicken, fish, nuts, seeds, and legumes. (3) Eat Better. Eat small portions. Shop at the grocery with a list and do not stray from it. Tips for a healthy diet include: Limit sodium intake to less than 1500mg daily, avoid prepackaged, processed, and fast foods, choose a diet rich in fruits, vegetables, and whole grain, high fiber foods, and limit saturated & cholesterol in your diet. (4) Manage Blood Pressure. If you have high blood pressure, you should have a cuff at home so that you can check your blood pressure regularly. Be sure you have a good cuff. An arm one is generally better than a wrist one. Bring the cuff to a doctor's appointment to validate that the measurements that your cuff are taking are accurate. Take your blood pressure twice daily when you are sitting down and relaxing. Record the numbers in a log and bring this log with you to your doctors' appointments. (5) Lose Weight if your BMI is above 25. A healthy BMI is between 19-25. To calculate Your BMI, you may use a Standard BMI Calculator on the NIH BMI website: <www.nhlbi.nih.gov/guidelines/obesity/BMI/bmicalc.htm>. Weigh oneself daily. If you are overweight, set a goal to lose weight. A pound a week loss if needed is a good target. (6) Reduce Blood Sugar. Limit foods and liquids with "added sugars." (Added sugars include sucrose, fructose, glucose, maltose, dextrose, high fructose corn syrup, corn syrup, concentrated fruit juice and honey). (7) Stop Smoking. If you smoke, quitting smoking is one of the best things that you can do for your health. Smoking increases your risk of heart attack, stroke, and peripheral vascular disease, which is a build-up of plaque in your arteries. Please discard all the cigarettes and lighters in your house. Have a plan for what you will do when you have the urge to smoke. Direct and second- hand smoke shortens your life as well as the lives of your family, friends and others around you. For your health and the health of those around you, please consider quitting! Proper Bending Body Mechanics: Maintain a wide stance with one foot slightly in front of the other. Keep your back straight. Bend utilizing the strength in your hips and knees. Do not bend at the waist. Maintain the lifted object at your waist-level close to your body. Avoid lifting weight that causes immediately pain or pain anywhere in the body afterwards. Smoking/Nicotine If there was ever one thing that you could do to increase your overall health, decrease your risk of cardiovascular problems by about 39% the second you make the choice, it is to STOP SMOKING. Your body's most instant gratification is the second you stop smoking. We have all heard the studies, read the articles but it is true, smoking is extremely bad for your overall health, and moreover it is detrimental to your bone health. Nicotine, IN ANY FORM, kills bone cells, prevents your body from healing fractures, and significantly prolongs healing after surgery. In spine surgery specifically, it increases your risk of not healing your bones to create a fusion and increases your risk of having a revision surgery due to this up to 60%. I know it is hard. I know it feels impossible. But there are ways. Take control of your life. We are here to help you through it. And when you are ready, ask us and we can direct you to help if you desire. Use the START Plan to Quit Smoking (please visit the Helpguide.org website listed below for more information): S = Set a quit date. Choose a date within the next 2 weeks, so you have enough time to prepare without losing your motivation to quit. If you mainly smoke at work, quit on the weekend, so you have a few days to adjust to the change. T = Tell family, friends, and co-workers that you plan to quit. Let your friends and family in on your plan to quit smoking and tell them you need their support and encouragement to stop. Look for a quit mariya who wants to stop smoking as well. You can help each other get through the rough times. A = Anticipate and plan for the challenges you'll face while quitting. Most people who begin smoking again do so within the first 3 months. You can help yourself make it through by preparing ahead for common challenges, such as nicotine withdrawal and cigarette cravings. R = Remove cigarettes and other tobacco products from your home, car, and work. Throw away all your cigarettes (no emergency pack!), lighters, ashtrays, and matches. Wash your clothes and freshen up anything that smells like smoke. Shampoo your car, clean your drapes and carpet, and steam your furniture. T = Talk to your doctor about getting help to quit. Your doctor can prescribe medication to help with withdrawal and suggest other alternatives. If you can't see a doctor, you can get many products over the counter at your local pharmacy or grocery store, including the nicotine patch, nicotine lozenges, and nicotine gum. Resources for Quitting Smoking: <https://www.[place].gov/documents/mdc/Quit_Tobacco_Resources_for_p atients_313480_7.pdf> Supplementation: Take recommended dosages of Vitamin D and Calcium to help fortify your bones and help them to heal. See your health maintenance packet for dosages and recommended levels. DVT/VTE prophylaxis: You will be given compression stockings from the hospital. Wear these daily for the first two weeks after surgery. You may take them off at night. You may be prescribed a medication to help thin your blood. Take this as directed. If you are not prescribed this medication, early and frequent ambulation has been shown to be the best prophylaxis to deep vein thrombosis and sequelae related to this event. Discharge Disposition: HOME WITH HOME HEALTH SERVICES
--- NOTE | 2022-12-02 09:20 | P.PN ---
Subjective Progress Note Date: 12/02/22 Principal diagnosis: 1. 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 Status post L5-S1 posterior lateral interbody fusion with likely pseudoarthrosis 3. Lower extremity weakness with rotator extremity radiculopathy related to spondylosis and severe stenosis 4. Neurogenic claudication 5. Lower extremity paresthesias 6. Low back pain Patient was seen at bedside this morning sitting up in chair looking forward to going home. Patient does have a back brace on currently. Patient says she is having some low back pain at this time but pain has been getting better over the past couple days. Patient says she has urinated since surgery. Patient is looking forward to having drain removed today at bedside. Patient says she has been using incentive spirometer. Patient says she has been doing well with physical therapy and has been walking around the room as well as the hallway using walker as needed. Patient denies chest pain, fever, shortness breath, nausea, vomiting, change in vision, loss of bowel/bladder control Objective - Vital Signs Vital signs: Vital Signs Temp 99.0 F 12/02/22 07:30 Pulse 78 12/02/22 07:30 Resp 18 12/02/22 07:30 BP 145/70 12/02/22 07:30 Pulse Ox 95 12/02/22 08:04 FiO2 Intake & Output 12/01/22 12/02/22 12/02/22 18:59 06:59 18:59 Output Total 300 210 Balance -300 -210 Output: Drainage 300 210 Back 300 210 Other: Voiding Method Toilet Toilet # Voids 1 2 - Exam Drain present at bedside this morning. Surgical dressing is in place over midline spine. Minimal spotting of dressing. Dressing was removed. Stable to appear to be well aligned and intact at this time. Negative for any active drainage. Negative for any fluctuance/. Eyes. Drain was removed at bedside. There was minimal drainage once drain was removed. Tegaderm and 4 x 4 were placed over drains incision. New surgical dressing was placed over main incision. Sensation is equal, symmetric, by intact throughout the upper and lower extremities. There is some generalized pain to palpation over the lumbar spine at midline. Nontender to palpation throughout rest of exam. Patient has full range of motion bilateral upper extremities on exam. Patient does have very minor limited range of motion in bilateral hips and flex/extension secondary to pain referred from the low back. 5/5 in all major milligrams in bilateral upper extremities on exam. 4/5 in resisted bilateral lower extremity ankle dorsi/plantar flexion and EHL/FHL. No rashes status is intact. Radial pulses 2+ bilaterally. Cap refill under 3 seconds in digits of upper extremit ies. Negative Homans bilaterally. - Labs CBC & Chem 7: 11/30/22 07:01 11/30/22 07:01 Labs: Abnormal Lab Results - Last 24 Hours (Table) 12/01/22 12/01/22 12/02/22 Range/Units 10:57 15:54 06:08 POC Glucose (mg/dL) 132 H 122 H 114 H (70-110) mg/dL Assessment and Plan Assessment: 1. 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 Status post L5-S1 posterior lateral interbody fusion with likely pseudoarthrosis 3. Lower extremity weakness with rotator extremity radiculopathy related to spondylosis and severe stenosis 4. Neurogenic claudication 5. Lower extremity paresthesias 6. Low back pain - Postoperative day 4 status post: 1. L4-5 intradiscal 3 column osteotomy for deformity correction 2. L3-4 and L4-5 posteriolateral and interbody fusion 3. Revision posteriolateral fusion L5-S1 Plan: 1. 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 Patient stable at bedside this morning. Minimal output and drain. Drain was removed at bedside today. New dressing placed over incision and dressing placed over drain incision. Discharge home today with health services 2. Appreciate medical management 3. Pain management - oxycodone; Tylenol; Flexeril 4. DVT prophylaxis - mechanical 5. GI prophylaxis - senna 6. PT/OT - weightbearing as tolerated with walker and brace on while up and about 7. Encourage incentive spirometer use 8. Discharge planning - home today with health services Time with Patient: Less than 30
== END 2022-12-02 11:37 | disposition home health service (06) | DRG 460 ==
LOC: 2ORMAIN 08:39 → 4SSUR 16:55
PROVIDERS: ADMIT Orthopaedic Surgery; ATTEND Orthopaedic Surgery
PROC: 0SG107J Fusion of 2 or more Lumbar Vertebral Joints with Autologous Tissue Substitute, Posterior Approach, Anterior Column, Open Approach (ICD-10-PCS; 2022-11-28)
PROC: 01NB0ZZ Release Lumbar Nerve, Open Approach (ICD-10-PCS; 2022-11-28)
PROC: 0SP004Z Removal of Internal Fixation Device from Lumbar Vertebral Joint, Open Approach (ICD-10-PCS; 2022-11-28)
PROC: 0QS004Z Reposition Lumbar Vertebra with Internal Fixation Device, Open Approach (ICD-10-PCS; 2022-11-28)
PROC: 0WJL0ZZ Inspection of Lower Back, Open Approach (ICD-10-PCS; 2022-11-28)
PROC: 8E0WXBZ Computer Assisted Procedure of Trunk Region (ICD-10-PCS; 2022-11-28)
PROC: 0SG10AJ Fusion of 2 or more Lumbar Vertebral Joints with Interbody Fusion Device, Posterior Approach, Anterior Column, Open Approach (ICD-10-PCS; principal; 2022-11-28 10:15)
DX: T84.216A Breakdown (mechanical) of internal fixation device of vertebrae, initial encounter (principal); D62 Acute posthemorrhagic anemia; M96.0 Pseudarthrosis after fusion or arthrodesis; E03.9 Hypothyroidism, unspecified; E11.9 Type 2 diabetes mellitus without complications; D72.828 Other elevated white blood cell count; E78.5 Hyperlipidemia, unspecified; I10 Essential (primary) hypertension; J45.909 Unspecified asthma, uncomplicated; M48.062 Spinal stenosis, lumbar region with neurogenic claudication; M47.26 Other spondylosis with radiculopathy, lumbar region; M25.78 Osteophyte, vertebrae; M51.16 Intervertebral disc disorders with radiculopathy, lumbar region; R29.6 Repeated falls; G47.9 Sleep disorder, unspecified; G89.29 Other chronic pain; G47.33 Obstructive sleep apnea (adult) (pediatric); E87.6 Hypokalemia; Y83.8 Other surgical procedures as the cause of abnormal reaction of the patient, or of later complication, without mention of misadventure at the time of the procedure; Y79.1 Therapeutic (nonsurgical) and rehabilitative orthopedic devices associated with adverse incidents; Z87.891 Personal history of nicotine dependence; Z91.81 History of falling; Z79.51 Long term (current) use of inhaled steroids; Z79.890 Hormone replacement therapy; Z79.84 Long term (current) use of oral hypoglycemic drugs; Z79.85 Long-term (current) use of injectable non-insulin antidiabetic drugs; Z28.311 Partially vaccinated for COVID-19; Z79.899 Other long term (current) drug therapy
CPT/HCPCS: 72100; 72131; 80048; 80053; 83036; 83735; 84132; 85025; 86850; 86900; 86901; 94640; 94760

== ENCOUNTER → 2024-05-08 | Outpatient (CLI) | payer BC, MEDICARE ==
--- NOTE | 2024-05-09 09:54 | XR ---
EXAMINATION TYPE: XR sacrum coccyx DATE OF EXAM: 05/08/2024 COMPARISON: NONE HISTORY: Pain Three views are submitted. Sacrum is intact. SI joints are symmetric. Coccyx appears to be intact. Visualized pelvic structures intact. Postsurgical change involving the lower lumbosacral spine. SI joints patent. IMPRESSION: 1. Postsurgical changes lower lumbosacral spine. [facility], , 05/09/2024 7:35 AM
--- NOTE | 2024-05-09 09:54 | XR ---
EXAMINATION TYPE: XR Hip Complete RT DATE OF EXAM: 05/08/2024 COMPARISON: NONE HISTORY: Pain TECHNIQUE: 2 views submitted FINDINGS: There is no evidence of erosive change or acute fracture. Mild hypertrophic arthropathy of the SI pastor nts. Spurring of the greater trochanter. IMPRESSION: 1. Mild hip arthropathy 2. Moderate-sized greater trochanter spurring occasionally be associated with trochanteric bursitis. [facility], , 05/09/2024 7:34 AM
--- NOTE | 2024-05-09 09:54 | XR ---
EXAM TYPE: LUMBAR SPINE X RAY SERIES COMPARISON: NONE HISTORY: Pain TECHNIQUE: 4 views are submitted. FINDINGS: Alignment is anatomic. The pedicles are intact. The transverse processes are intact. There is no s pondylolysis or spondylolisthesis. There is a 8mm right renal calculus. Severe degenerative disc dis ease L2-L3. Postsurgical changes L3-S1. No significant anterolisthesis on current exam. IMPRESSION: 1. Postsurgical changes. 2. Severe degenerative disc disease L2-L3. 3. Right-sided nephrolithiasis. [facility], , 05/09/2024 7:37 AM
== END | disposition home or self-care (01) ==
LOC: RADXRMAIN 14:52
PROVIDERS: ATTEND Family Medicine
DX: M16.11 Unilateral primary osteoarthritis, right hip (principal); M70.61 Trochanteric bursitis, right hip; M51.16 Intervertebral disc disorders with radiculopathy, lumbar region; N20.0 Calculus of kidney; Z98.890 Other specified postprocedural states
CPT/HCPCS: 72100; 72220; 73502

== ENCOUNTER → 2024-05-09 | Outpatient (CLI) | payer BC, MEDICARE ==
--- NOTE | 2024-05-11 15:13 | MM ---
Reason for Exam: Screening (asymptomatic). Last mammogram was performed 3 year(s) and 1 month(s) ago. Patient History: Menarche at age 12. First Full-Term at age 21. Left ovary removed at age 47. Right ovary removed at age 47. Hysterectomy at age 47. Postmenopausal. Estrogen for 9 years from age 47 until age 56. Risk Values: Christina 5 year model risk: 1.3%. NCI Lifetime model risk: 6.6%. Prior Study Comparison: 02/15/2018 Bilateral Screening Mammogram, [facility]. 06/11/2019 Bilateral Screening Mammogram, [facility]. 04/01/2021 Bilateral Diagnostic Mammogram, [facility]. Tissue Density: There are scattered areas of fibroglandular density. Findings: Analyzed By CAD. The pattern is symmetrical. No significant interval change No suspicious groups of microcalcifications, spiculated or lobular masses, architectural distortion or other secondary signs of malignancy are mammographically apparent. Overall Assessment: Benign, BI-RAD 2 Management: Screening Mammogram of both breasts in 1 year. A negative mammogram report should not preclude additional follow up of suspicious palpable abnormalities. Patient should continue monthly self breast exam. A clinical breast exam by your physician is recommended on an annual basis and results should be correlated with mammographic findings. Note on Christina scores and lifetime risk: 1. A Christina score greater than 3% is considered moderate risk. If this is the case, consider specialist referral to assess eligibility for a risk reducing agent. 2. If overall lifetime risk for the development of breast cancer is 20% or higher, the patient may qualify for future screening with alternating mammogram and breast MRI. [facility], , 05/11/2024 3:10 PM. Electronically signed and approved by: Bobby Mendez D.O. Radiologis
== END | disposition home or self-care (01) ==
LOC: RADMAMWWP 11:59
PROVIDERS: ATTEND Family Medicine
DX: Z12.31 Encounter for screening mammogram for malignant neoplasm of breast
CPT/HCPCS: 77063; 77067

== ENCOUNTER 2024-06-23 08:41 | Day surgery (SDC) | payer BC, MEDICARE ==
[2024-06-20 16:06] VITALS: BMI 45.1
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
[~2024-06-23 08:41] MED LIST changes: -DEXAMETHASONE SOD PHOSPHATE 4 MG/ML 1 ML VIAL IV ONE; -GABAPENTIN 300 MG CAP PO PRN; -LIDOCAINE 1% (10MG/ML) FOR IV START INTRADERMA PRN; -MIDAZOLAM 2 MG/2 ML VIAL IV PRN; -ONDANSETRON 4 MG/2 ML VIAL IVP ONE; -ONDANSETRON 4 MG/2 ML VIAL IVP PRN; +TRANEXAMIC 1,000 MG/100ML-NACL 1,000 MG in SALINE 1 100ML.BAG IVPB PRN; -TRANEXAMIC ACID IN NACL,ISO-OS 1,000 MG in SALINE 1 100ML.BAG IVPB PRN
[2024-06-23] MEDS: IV FLUID CONTINUATION 1,000 ML IV ONE ×3 (09:00→09:41)
[2024-06-23 09:25] LABS: Glucose,Whole Blood 165 mg/dL (70-110)
[2024-06-23] MEDS: GABAPENTIN 300 MG CAP PO PRN (09:33)
[2024-06-23] MEDS: ONDANSETRON 4 MG/2 ML VIAL IVP PRN (09:33)
--- NOTE | 2024-06-23 10:12 | P.PN ---
Progress Note - Text Progress Note Date: 06/23/24 H&P UPDATE: PT S/E IN PRE OP. DISCUSSED RISKS AND BENEFITS AGAIN OUTLINED IN REVIEW. QUESTIONS ANSWERED. CONSENT CONFIRMED. NO CHANGE TO H&P. pT READY AND WILLING TO PROCEED WITH RIGHT SIJ FUSION.
[2024-06-23] MEDS ORDERED: GLYCOPYRROLATE 0.2 MG/ML 2 ML VIAL ONE (11:05)
[2024-06-23] MEDS ORDERED: SUCCINYLCHOLINE CHLORIDE 200 MG/10 ML VIAL IV ONE (11:05)
[2024-06-23] MEDS ORDERED: NEOSTIGMINE 1 MG/ML 10 ML VIAL ONE (11:05)
[2024-06-23] MEDS ORDERED: ROCURONIUM 10 MG/ML (5 ML VIAL) IV ONE (11:05)
[2024-06-23] MEDS ORDERED: LIDOCAINE 1% INJ 10MG/ML (20 ML MDV) ONE (11:05)
[2024-06-23] MEDS ORDERED: MIDAZOLAM 2 MG/2 ML VIAL ONE (11:05)
[2024-06-23] MEDS ORDERED: ALBUTEROL HFA INHALER INHALATION ONE (11:05)
[2024-06-23] MEDS ORDERED: TRANEXAMIC 1,000 MG/100ML-NACL PREMIX BAG ONE (11:05)
[2024-06-23] MEDS ORDERED: PROPOFOL 10 MG/ML 20 ML VIAL IV ONE (11:05)
[2024-06-23] MEDS ORDERED: fentaNYL (PF) 50 MCG/ML 2 ML AMP ONE (11:05)
[2024-06-23] MEDS: LACTATED RINGERS 1,000 ML IV ONE (11:30)
[2024-06-23] MEDS: LIDOCAINE 2%-EPI 1:100,000 20 ML VIAL SQ ONE (12:17)
[2024-06-23] MEDS: THROMBIN (BOVINE) 5,000 UNIT VIAL TOPICAL ONE (12:17)
[2024-06-23] MEDS: BUPIVACAINE (PF) 0.5% 30 ML VIAL SQ ONE (12:17)
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
[2024-06-23] MEDS ORDERED: ONDANSETRON 4 MG/2 ML VIAL IVP PRN (12:42)
[2024-06-23] MEDS ORDERED: SENNOSIDES-DOCUSATE SODIUM 1 EACH TAB PO PRN (12:42)
[2024-06-23] MEDS ORDERED: HYDROcodone/APAP 10-325MG 1 EACH TAB PO PRN (12:42)
[2024-06-23] MEDS ORDERED: HYDROcodone/APAP 5-325MG 1 EACH TAB PO PRN (12:42)
[2024-06-23] MEDS ORDERED: MAGNESIUM HYDROXIDE 2,400 MG/30 ML CUP PO PRN (12:42)
[2024-06-23] MEDS ORDERED: CYCLOBENZAPRINE 10 MG TAB PO PRN (12:42)
[2024-06-23] MEDS ORDERED: HYDROmorphone 1 MG/ML 1 ML SYRINGE IVP PRN (12:42)
--- NOTE | 2024-06-23 12:50 | FL ---
EXAMINATION TYPE: FL guidance operating room, XR sacrum coccyx DATE OF EXAM: 06/23/2024 12:44 PM COMPARISON: Pre Operative Images if available both CT/MRI or plain film CLINICAL INDICATION: Female, 59 years old with history of RT SI joint fusion; TECHNIQUE: FL guidance operating room, XR sacrum coccyx, multiple fluoroscopic images provided for belkis valadez. Total fluoroscopy time: 42 seconds Total submitted images to PACS: 6 DAP: 810.66 mGym2 Gycm2 uGym2 cGycm2 or equivalent. FINDINGS: Fluoroscopic images during internal fixation/arthroplasty demonstrate fixation hardware in appropriat e position. Hardware appears intact. No immediate complication identified. IMPRESSION: 1. No evidence for intraoperative complication. 2. Please see the operative/procedural note for further details. [facility], , 06/23/2024 12:48 PM
[2024-06-23 12:55] VITALS: TEMP 98.5
[2024-06-23] MEDS: HYDROmorphone 0.5 MG/0.5 ML SYRINGE IVP PRN (12:59)
[2024-06-23] MEDS ORDERED: HYDROmorphone 0.5 MG/0.5 ML SYRINGE IVP PRN (13:26)
[2024-06-23 13:39] LABS: Glucose,Whole Blood 157 mg/dL (70-110)
[2024-06-23 14:38] VITALS: RESP 16
[2024-06-23 15:33] VITALS: BP 121/67; PULSE 80
[2024-06-23] MEDS ORDERED: ACETAMINOPHEN TAB 325 MG TAB PO SCH (18:00)
[2024-06-23] MEDS ORDERED: KETOROLAC 15 MG/ML 1 ML VIAL IVP SCH (18:00)
== END 2024-06-23 15:41 | disposition home or self-care (01) ==
LOC: OR 08:41
PROVIDERS: ATTEND Orthopaedic Surgery
DX: M46.1 Sacroiliitis, not elsewhere classified (principal); M47.817 Spondylosis without myelopathy or radiculopathy, lumbosacral region; M25.551 Pain in right hip; I10 Essential (primary) hypertension; E78.5 Hyperlipidemia, unspecified; J45.909 Unspecified asthma, uncomplicated; G47.33 Obstructive sleep apnea (adult) (pediatric); E03.9 Hypothyroidism, unspecified; K21.9 Gastro-esophageal reflux disease without esophagitis; E11.36 Type 2 diabetes mellitus with diabetic cataract; Z87.442 Personal history of urinary calculi; Z85.820 Personal history of malignant melanoma of skin; Z01.818 Encounter for other preprocedural examination; Z90.710 Acquired absence of both cervix and uterus; Z82.49 Family history of ischemic heart disease and other diseases of the circulatory system; Z82.3 Family history of stroke; Z79.51 Long term (current) use of inhaled steroids; Z79.890 Hormone replacement therapy; Z79.84 Long term (current) use of oral hypoglycemic drugs; Z79.899 Other long term (current) drug therapy
CPT/HCPCS: 84132; 72220; 27279; J0690; J2405; J1171; J0665

== ENCOUNTER → 2024-10-10 | Outpatient (CLI) | payer BC, MEDICARE ==
--- NOTE | 2024-10-13 07:42 | CT ---
EXAMINATION TYPE: CT lumbar spine wo con DATE OF EXAM: 10/13/2024 6:59 AM COMPARISON: 11/29/2022 CLINICAL INDICATION: Female, 59 years old with history of M54.50 LOW BACK PAIN, UNSPECIFIED M43.26 FU [place] OF; [facility], Increasing lower back pain x2-3 months. TECHNIQUE: Unenhanced CT of the lumbar spine was performed. Bone and soft tissue window settings are submitted as well as coronal and sagittal reconstructions. CT DLP: 1842.[address] CTDI: mGy Automated exposure control for dose reduction was used. Examination is limited by patient motion as w ell as streak artifact from the metallic hardware. FINDINGS: L1-L2: Normal disc space height. No disc herniation protrusion or central stenosis. No facet joint arthropathy. No evidence for foraminal encroachment. L2-L3: Interval development of vacuum disc. Mild posterior disc bulge without herniation or protrusio n. No central stenosis. Mild bilateral foraminal encroachment left greater than right. L3-L4: Postsurgical changes of decompressive laminectomy and fusion. Pedicular screws are in place. I ntervertebral body spacer is unchanged. Streak artifact limits evaluation of the spinal canal. L4-L5: Postsurgical changes of decompressive laminectomy and fusion. Pedicular screws are in place. I ntervertebral body spacer is unchanged. Streak artifact limits evaluation of the spinal canal. L5-S1: Postsurgical changes of decompressive laminectomy and fusion. Pedicular screws are in place. I ntervertebral body spacer is unchanged. Streak artifact limits evaluation of the spinal canal. Nonobstructing right-sided nephrolithiasis with a couple renal calculi seen measuring up to 8 mm. IMPRESSION: 1. Examination is limited by beam hardening artifact from metallic hardware and limited characterizat ion of spinal canal. Overall postoperative appearance appears essentially stable. New vacuum disc at L2-3 with mild disc bulging and mild foraminal encroachment. [facility], , 10/13/2024 7:39 AM
== END | disposition home or self-care (01) ==
LOC: RADCTMAIN 16:12
PROVIDERS: ATTEND Orthopaedic Surgery
DX: M51.360 Other intervertebral disc degeneration, lumbar region with discogenic back pain only (principal); M43.26 Fusion of spine, lumbar region
CPT/HCPCS: 72131